=== PATIENT | male | born 1980 | race Caucasian/White ===

== ENCOUNTER 2016-03-04 13:14 | Emergency (ER) | payer OTHER ==
[2016-03-04] MEDS ORDERED: ULTRAM 50 MG PO ONE (13:40)
[2016-03-04] MEDS ORDERED: ULTRAM 50 MG ONE (13:42)
--- NOTE | 2016-03-04 13:55 | ERPHSYRPT ---
- History of Present Illness Time Seen by Provider: 03/04/16 13:15 Source: patient Exam Limitations: clinical condition Patient Subjective Stated Complaint: STATES TOOTHACHE FOR TWO DAYS. UNABLE TO GET INTO DENTIST BECAUSE OF INSURANCE. TOOK HIS [place] TODAY AND HASN'T GOTTEN MUCH RELIEF. Triage Nursing Assessment: AMBULATED TO ROOM PER SELF. SKIN W/D. STATES RIGHT FRONT UPPER TOOTH IS ACHING. Physician History: PATIENT HAS INCREASING TOOTHACHE OVER THE PAST WEEK. DENIES FEVER, FACIAL PAIN OR SWELLING, DIFFICULTY BREATHING OR SWALLOWING. Timing/Duration: gradual onset Severity: moderate ENT Location: dental Prearrival Treatment: prescription meds Associated Symptoms: tooth pain Allergies/Adverse Reactions: haloperidol [From Haldol] Adverse Reaction (Verified 03/04/16 13:23) haloperidol lactate [From Haldol] Adverse Reaction (Verified 03/04/16 13:23) Home Medications: Sertraline HCl 100 mg [Zoloft 100 MG] 100 mg PO BID 10/03/11 [History] Simvastatin 10 mg [Zocor 10MG] 10 mg PO HS 10/03/11 [History] Imipramine HCl 50 mg PO HS 06/01/12 [History] Carvedilol 6.25 mg [Coreg 6.25 MG] 6.25 mg PO BID 11/17/14 [History] Gabapentin 600 mg PO TID 11/17/14 [History] Hydrocodone/APAP 10/325 mg [[place] 10/325 MG Tablet] 1 tab PO Q6-8HPRN PRN 11/17/14 [History] Ipratropium/Albuterol Sulfate [Combivent Inhaler] 14.7 gm IH .PRN 11/17/14 [ History] Clonazepam [Klonopin] 1 mg PO BID 01/13/15 [History] Divalproex Sodium 250 mg PO TID 01/13/15 [History] Famotidine 20 mg [Pepcid 20 MG] 20 mg PO BID 01/13/15 [History] Clonazepam 0.5 mg [Klonopin 0.5 MG] 0.5 mg PO LUNCH 02/09/16 [History] Quetiapine Fumarate [Seroquel] 300 mg PO TID 12/18/16 [History] Hx Tetanus, Diphtheria Vaccination/Date Given: Yes Hx Influenza Vaccination/Date Given: No Hx Pneumococcal Vaccination/Date Given: No - Review of Systems Constitutional: No Fever, No Chills Eyes: No Symptoms Ears, Nose, & Throat: No Symptoms, Other (DENTAL PAIN) Respiratory: No Cough, No Dyspnea Cardiac: No Chest Pain, No Edema, No Syncope Abdominal/Gastrointestinal: No Abdominal Pain, No Nausea, No Vomiting, No Diarrhea Genitourinary Symptoms: No Dysuria Musculoskeletal: No Back Pain, No Neck Pain Skin: No Rash Neurological: No Dizziness, No Focal Weakness, No Sensory Changes Psychological: No Symptoms Endocrine: No Symptoms - Past Medical History Pertinent Past Medical History: Yes Neurological History: Other ENT History: No Pertinent History Cardiac History: High Cholesterol, Hypertension Respiratory History: Other Endocrine Medical History: No Pertinent History Musculoskeletal History: Other GI Medical History: No Pertinent History Psycho-Social History: Anxiety, Depression Other Medical History: GUILLE LUNG COLAPSED 2008, left foot fracture in three places braced no surgery per pt history verbally - Past Surgical History Past Surgical History: Yes Gastrointestinal: Cholecystectomy, Hernia Repair Musculoskeletal: Orthopedic Surgery Other Surgical History: TONSILECTOMY. titanium plate in neck. right hand. TRACH/STOMA. lt foot surgery - Social History Smoking Status: Never smoker Exposure to second hand smoke: Yes Alcohol Use: None Drug Use: none Patient Lives Alone: No Significant Family History: no pertinent family hx - Nursing Vital Signs Nursing Vital Signs: Initial Vital Signs Temperature 98.2 F Temperature Source Oral Pulse Rate 89 Respiratory Rate 16 Blood Pressure 116/90 Pain Intensity 7 - Physical Exam SpO2: 94 Oxygen Delivery: Room Air Ordered Tests: Medication Summary Discontinued Medications Generic Name Dose Route Start Last Admin Trade Name Branden PRN Reason Stop Dose Admin Tramadol HCl 50 mg 03/04/16 13:40 03/04/16 13:47 Ultram 50 Mg PO 03/04/16 13:41 50 mg STAT ONE Administration Tramadol HCl Confirm 03/04/16 13:42 Ultram 50 Mg Administered 03/04/16 13:43 Dose 50 mg .ROUTE .STK-MED ONE - Progress Progress: pain not gone completely Progress Note: 03/04/16 13:51 PATIENT GIVEN ULTRAM 50MG ORALLY Counseled pt/family regarding: diagnosis, need for follow-up - Departure Time of Disposition: 14:00 Departure Disposition: Home Clinical Impression: DENTALGIA Condition: Stable Critical Care Time: No Additional Instructions: CONSULT A DENTIST TODAY TO SCHEDULE APPOINTMENT. ANTIBIOTIC AUGMENTIN 875MG TWICE DAILY FOR 10 DAYS. ULTRAM 50MG EVERY 4 HOURS FOR PAIN. Prescriptions: Tramadol HCl 50 mg [Ultram 50 mg] 50 mg PO Q4HPRN PRN #15 tablet PRN Reason: Pain Amox Tr/Potass Clav. 875 mg [Augmentin 875-125 Tablet] 875 mg PO BID #20 tablet
[2016-03-04 14:01] VITALS: BP 126/84; PULSE 80; O2SAT 96
== END 2016-03-04 14:01 | disposition home or self-care (01) ==
LOC: ED 13:14
DX: K08.89 Other specified disorders of teeth and supporting structures (principal)
CPT/HCPCS: 99282

== ENCOUNTER 2016-12-08 11:11 | Emergency (ER) | payer OTHER ==
[2016-12-08] MEDS ORDERED: Sodium Chloride 0.9% 1000 ML 1,000 ML IV STA ×3 (11:21→14:18)
--- NOTE | 2016-12-08 11:25 | ERPHSYRPT ---
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 Past medical history includes hypercholesterolemia high blood pressure anxiety depression, bilateral lungs collapsed left foot fracture. Past surgical history includes cholecystectomy, hernia repair, tonsillectomy and adenoidectomy. Also type T and place in his neck, left foot surgery Timing/Duration: other (feeling dizzy for 2-3 days) Modifying Factors: Improves With: nothing Associated Symptoms: malaise, weakness, other (dizzy), No nausea, No vomiting, No abdominal pain, No shortness of breath, No heartburn, No diaphoresis, No cough, No chills, No chest pain, No fever, No headaches, No loss of appetite, No rash, No syncope, No seizure Allergies/Adverse Reactions: haloperidol [From Haldol] Adverse Reaction (Verified 12/08/16 11:14) haloperidol lactate [From Haldol] Adverse Reaction (Verified 12/08/16 11:14) Home Medications: Simvastatin 10 mg [Zocor 10MG] 10 mg PO HS 10/03/11 [History] Carvedilol 6.25 mg [Coreg 6.25 MG] 6.25 mg PO BID 11/17/14 [History] Gabapentin 600 mg PO TID 11/17/14 [History] Ipratropium/Albuterol Sulfate [Combivent Inhaler] 2 puff IH QID 11/17/14 [ History] Clonazepam [Klonopin] 1 mg PO BID 01/13/15 [History] Quetiapine Fumarate [Seroquel] 300 mg PO BID 02/09/16 [History] Famotidine [Pepcid] 40 mg PO DAILY 07/16/16 [History] Hx Tetanus, Diphtheria Vaccination/Date Given: Yes Hx Influenza Vaccination/Date Given: No Hx Pneumococcal Vaccination/Date Given: No - Review of Systems Constitutional: Weakness, No Fever, No Chills Eyes: No Symptoms Ears, Nose, & Throat: No Symptoms Respiratory: No Cough, No Dyspnea Cardiac: No Chest Pain, No Edema, No Syncope Abdominal/Gastrointestinal: No Abdominal Pain, No Nausea, No Vomiting, No Diarrhea Genitourinary Symptoms: No Dysuria Musculoskeletal: No Back Pain, No Neck Pain Skin: No Rash Neurological: Dizziness, No Focal Weakness, No Gait Changes, No Headache, No Irritability, No Lethargy, No Paralysis, No Parasthesia, No Seizure, No Sensory Changes, No Speech Changes, No Tics (really), No Tremors, No Vertigo Psychological: No Symptoms Endocrine: No Symptoms All Other Systems: Reviewed and Negative (") - Past Medical History Pertinent Past Medical History: Yes Neurological History: Other ENT History: No Pertinent History Cardiac History: High Cholesterol, Hypertension Respiratory History: Other Endocrine Medical History: No Pertinent History Musculoskeletal History: Other GI Medical History: No Pertinent History Psycho-Social History: Anxiety, Depression Other Medical History: GUILLE LUNG COLAPSED 2008, left foot fracture in three places braced no surgery per pt history verbally - Past Surgical History Past Surgical History: Yes Gastrointestinal: Cholecystectomy, Hernia Repair Musculoskeletal: Orthopedic Surgery Other Surgical History: TONSILECTOMY. titanium plate in neck. right hand. TRACH/STOMA. lt foot surgery - Social History Smoking Status: Never smoker Exposure to second hand smoke: Yes Alcohol Use: None Drug Use: none Patient Lives Alone: No Significant Family History: no pertinent family hx - Nursing Vital Signs Nursing Vital Signs: Initial Vital Signs Pulse Rate 72 12/08/16 11:12 Respiratory Rate 18 12/08/16 11:12 Blood Pressure 84/60 12/08/16 11:12 O2 Sat by Pulse Oximetry 94 L 12/08/16 11:12 Pain Scale Pain Intensity 0 - Physical Exam General Appearance: other (well-developed well-nourished [place], pale in appearance) Eye Exam: PERRL/EOMI, eyes nml inspection Ears, Nose, Throat Exam: normal ENT inspection Neck Exam: normal inspection, non-tender, supple, full range of motion Respiratory Exam: normal breath sounds, lungs clear, No respiratory distress Cardiovascular Exam: regular rate/rhythm, normal heart sounds, normal peripheral pulses Gastrointestinal/Abdomen Exam: soft, normal bowel sounds, No tenderness, No mass Back Exam: normal inspection, normal range of motion, No CVA tenderness, No vertebral tenderness Extremity Exam: normal inspection, normal range of motion, pelvis stable Neurologic Exam: alert, oriented x 3, cooperative, normal mood/affect, nml cerebellar function, nml station & gait, sensation nml, No motor deficits Skin Exam: normal color, warm, dry, No rash Lymphatic Exam: No adenopathy SpO2: 94 Oxygen Delivery: Nasal Cannula - Course Nursing assessment & vital signs reviewed: Yes EKG Interpreted by Me: RATE (EKG: Sinus rhythm, 67 bpm, no acute ST or T wave changes noted, normal axis) Ordered Tests: Active Orders 24 hr Category Date Time Status EKG-ER Only STAT Care 12/08/16 11:21 Active IV Insertion STAT Care 12/08/16 11:21 Active Orthostatic Vital Signs STAT Care 12/08/16 11:21 Active Regular Diet Diet 12/08/16 Dinner Active CHEST 1 VIEW (PORTABLE) Stat Exams 12/08/16 11:21 Completed AMYLASE Stat Lab 12/08/16 11:30 Completed CBC W DIFF Stat Lab 12/08/16 11:30 Completed CMP Stat Lab 12/08/16 11:30 Completed LIPASE Stat Lab 12/08/16 11:30 Completed TROPONIN Q3H Lab 12/08/16 11:30 Completed TROPONIN Q3H Lab 12/08/16 14:30 Ordered TROPONIN Q3H Lab 12/08/16 17:30 Ordered TROPONIN Q3H Lab 12/08/16 20:30 Ordered TROPONIN Q3H Lab 12/08/16 23:30 Ordered UA W/RFX UR CULTURE Stat Lab 12/08/16 12:35 Completed Urine Triage Profile Stat Lab 12/08/16 12:35 Completed Medication Summary Generic Name Dose Route Start Last Admin Trade Name Freq PRN Reason Stop Dose Admin Sodium Chloride 1,000 mls @ 999 mls/hr 12/08/16 14:13 12/08/16 14:22 Sodium Chloride 0.9% 1000 Ml IV 12/08/16 15:13 999 mls/hr .Q1H1M STA Administration Sodium Chloride 1,000 mls @ 999 mls/hr 12/08/16 14:18 12/08/16 14:22 Sodium Chloride 0.9% 1000 Ml IV 12/08/16 15:18 999 mls/hr .Q1H1M STA Administration Discontinued Medications Generic Name Dose Route Start Last Admin Trade Name Freq PRN Reason Stop Dose Admin Sodium Chloride 1,000 mls @ 999 mls/hr 12/08/16 11:21 12/08/16 12:00 Sodium Chloride 0.9% 1000 Ml IV 12/08/16 12:21 999 mls/hr .Q1H1M STA Administration Sodium Chloride Confirm 12/08/16 14:18 Sodium Chloride 0.9% 1000 Ml Administered 12/08/16 14:19 Dose 1,000 mls @ ud .ROUTE .STK-MED ONE Lab/Rad Data: Laboratory Result Diagrams 12/08/16 11:30 12/08/16 11:30 Laboratory Results 12/08/16 12/08/16 12/08/16 Range/Units 12:35 12:35 11:30 WBC (4.0-10.5) K/mm3 RBC (4.1-5.6) M/mm3 Hgb (12.5-18.0) gm/dl Hct (42-50) % MCV (78-100) fl MCH (26-32) pg MCHC (32-36) g/dl RDW (11.5-14.0) % Plt Count (150-450) K/mm3 MPV (6-9.5) fl Gran % (36.0-66.0) % Lymphocytes % (24.0-44.0) % Monocytes % (0.0-12.0) % Eosinophils % (0.00-5.0) % Basophils % (0.0-0.4) % Basophils # (0-0.4) Sodium (136-145) mEq/L Potassium (3.5-5.1) mEq/L Chloride (98-107) mEq/L Carbon Dioxide (21-32) mEq/L Anion Gap (5-15) MEQ/L BUN (9-20) mg/dL Creatinine (0.55-1.30) mg/dl Estimated GFR ML/MIN Glucose (70-110) MG/DL Calcium (8.5-10.1) mg/dL Total Bilirubin (0.2-1.0) mg/dL AST (15-37) U/L ALT (12-78) U/L Alkaline Phosphatase (46-116) U/L Troponin I < 0.017 (0.000-0.056) ng/ml Serum Total Protein (6.4-8.2) gm/dL Albumin (3.4-5.0) g/dL Amylase (25-115) U/L Lipase (73-393) U/L Ur Collection Type VOID Urine Color YELLOW (YELLOW) Urine Appearance CLEAR (CLEAR) Urine pH 7.0 (5-6) Ur Specific [place] 1.010 (1.005-1.025) Urine Protein NEGATIVE (Negative) Urine Ketones NEGATIVE (NEGATIVE) Urine Blood NEGATIVE (0-5) Cameron/ul Urine Nitrite NEGATIVE (NEGATIVE) Urine Bilirubin NEGATIVE (NEGATIVE) Urine Urobilinogen NORMAL (0-1) mg/dL Ur Leukocyte Esterase NEGATIVE (NEGATIVE) Urine Culture Reflexed NO (NO) Urine Glucose NEGATIVE (NEGATIVE) mg/dL Urine Opiates Level NEG. (NEGATIVE) Ur Methadone NEG. (NEGATIVE) Urine Barbiturates NEG. (NEGATIVE) Ur Phencyclidine (PCP) NEG. (NEGATIVE) Urine Amphetamine NEG. (NEGATIVE) U Benzodiazepine Level POS. (NEGATIVE) Urine Cocaine NEG. (NEGATIVE) Urine Marijuana (THC) NEG. (NEGATIVE) Specimen Received 12/08/16 1235 12/08/16 12/08/16 Range/Units 11:30 11:30 WBC 4.3 (4.0-10.5) K/mm3 RBC 4.80 (4.1-5.6) M/mm3 Hgb 14.8 (12.5-18.0) gm/dl Hct 44.2 (42-50) % MCV 92.1 (78-100) fl MCH 30.8 (26-32) pg MCHC 33.5 (32-36) g/dl RDW 14.0 (11.5-14.0) % Plt Count 183 (150-450) K/mm3 MPV 10.4 H (6-9.5) fl Gran % 44.9 (36.0-66.0) % Lymphocytes % 41.9 (24.0-44.0) % Monocytes % 10.6 (0.0-12.0) % Eosinophils % 2.1 (0.00-5.0) % Basophils % 0.5 (0.0-0.4) % Basophils # 0.02 (0-0.4) Sodium 139 (136-145) mEq/L Potassium 3.9 (3.5-5.1) mEq/L Chloride 102 (98-107) mEq/L Carbon Dioxide 25.8 (21-32) mEq/L Anion Gap 15.1 H (5-15) MEQ/L BUN 10 (9-20) mg/dL Creatinine 1.21 (0.55-1.30) mg/dl Estimated GFR > 60 ML/MIN Glucose 98 (70-110) MG/DL Calcium 9.2 (8.5-10.1) mg/dL Total Bilirubin 0.30 (0.2-1.0) mg/dL AST 25 (15-37) U/L ALT 38 (12-78) U/L Alkaline Phosphatase 68 (46-116) U/L Troponin I (0.000-0.056) ng/ml Serum Total Protein 7.9 (6.4-8.2) gm/dL Albumin 4.0 (3.4-5.0) g/dL Amylase 40 (25-115) U/L Lipase 150 (73-393) U/L Ur Collection Type Urine Color (YELLOW) Urine Appearance (CLEAR) Urine pH (5-6) Ur Specific [place] (1.005-1.025) Urine Protein (Negative) Urine Ketones (NEGATIVE) Urine Blood (0-5) Cameron/ul Urine Nitrite (NEGATIVE) Urine Bilirubin (NEGATIVE) Urine Urobilinogen (0-1) mg/dL Ur Leukocyte Esterase (NEGATIVE) Urine Culture Reflexed (NO) Urine Glucose (NEGATIVE) mg/dL Urine Opiates Level (NEGATIVE) Ur Methadone (NEGATIVE) Urine Barbiturates (NEGATIVE) Ur Phencyclidine (PCP) (NEGATIVE) Urine Amphetamine (NEGATIVE) U Benzodiazepine Level (NEGATIVE) Urine Cocaine (NEGATIVE) Urine Marijuana (THC) (NEGATIVE) Specimen Received - Progress Progress: improved Progress Note: 12/08/16 14:13 36-year-old white male complaining of feeling weak and dizzy for the last couple days with the sudden onset of dizziness and feeling like he was going to pass out after helping moving things. Patient was noted to be hypotensive on arrival he was given 2 L of normal saline. Labs essentially normal. EKG no acute changes. I have discussed case with Dr. Graf he requests the patient get 1 more liter of fluids and consider discharge with him to follow-up with Dr. Graf on . - Departure Time of Disposition: 14:14 Departure Disposition: Home Clinical Impression: Dizziness, Orthostatic hypotension Condition: Fair Critical Care Time: No Referrals: RODRIGUEZ GRAF MD [Primary Care Provider] - Additional Instructions: Return home. Plenty of fluids. Follow-up with Dr. Graf call for an appointment. Return for acute distress or for severe symptoms.
[2016-12-08 11:39] LABS: BASOPHIL % 0.5 % (0.0-0.4); Eosinophil % 2.1 % (0.00-5.0); Granulocytes % 44.9 % (36.0-66.0); Lymphocytes % 41.9 % (24.0-44.0); Mean Cell Volume 92.1 fl (78-100); Mean Corpuscular Hemoglobin 30.8 pg (26-32); Mean Platelet Volume 10.4 fl (6-9.5); Monocytes % 10.6 % (0.0-12.0); Platelet Count 183 K/mm3 (150-450); White Blood Count 4.3 K/mm3 (4.0-10.5)
[2016-12-08 12:04] LABS: ALKALINE PHOSPHATASE 68 U/L (46-116); ANION GAP 15.1 MEQ/L (5-15); BLOOD UREA NITROGEN 10 mg/dL (9-20); CHLORIDE 102 mEq/L (98-107); Carbon Dioxide 25.8 mEq/L (21-32); Glucose 98 MG/DL (70-110); LIPASE 150 U/L (73-393); Potassium 3.9 mEq/L (3.5-5.1); SGOT/AST 25 U/L (15-37); SGPT/ALT 38 U/L (12-78); SODIUM 139 mEq/L (136-145); Total Protein 7.9 gm/dL (6.4-8.2)
--- NOTE | 2016-12-08 12:07 | XRAY ---
Indication: Short of breath and dizziness. Comparison: February 09, 2016. Portable chest clear today again with left lung calcified granuloma. Heart is not enlarged for AP portable technique. Vascularity normal. Bony thorax intact again with cervical thoracic fusion surgery. Impression: Nonacute chest with chronic features.
[2016-12-08 12:43] LABS: ADD URINE CULTURE? NO (NO); Bilirubin NEGATIVE (NEGATIVE); Blood NEGATIVE Ery/ul (0-5); COMPLETE URINE MICROSCOPIC? NO; Collection Type VOID; Glucose NEGATIVE (NEGATIVE); Leukocyte Esterase NEGATIVE (NEGATIVE)
[2016-12-08] MEDS ORDERED: Sodium Chloride 0.9% 1000 ML 1,000 ML ONE (14:18)
[2016-12-08 15:11] VITALS: BP 93/54; PULSE 70; O2SAT 98
== END 2016-12-08 15:30 | disposition home or self-care (01) ==
LOC: ED 11:11
DX: R42 Dizziness and giddiness (principal); I95.1 Orthostatic hypotension; E78.00 Pure hypercholesterolemia, unspecified; I10 Essential (primary) hypertension; F41.9 Anxiety disorder, unspecified; F32.9 Major depressive disorder, single episode, unspecified
CPT/HCPCS: 36000; 36415; 71010; 80053; 80307; 81002; 82150; 83690; 84484; 85025; 93005; 93041; 96360; 96361; 99284

== ENCOUNTER 2016-12-10 14:49 | Emergency (ER) | payer OTHER ==
[2016-12-10] MEDS ORDERED: Sodium Chloride 0.9% 1000 ML 1,000 ML IV STA (15:29)
--- NOTE | 2016-12-10 15:35 | ERPHSYRPT ---
- History of Present Illness Time Seen by Provider: 12/10/16 14:53 Source: patient, family, old records Exam Limitations: no limitations Patient Subjective Stated Complaint: pt here for syncopal episode at home today , pt co lightheadedness when stands up. and states he has traumatic brain injury and speech is normally slurred but today it is worse, pt was seen wednesday in er for the dizziness Triage Nursing Assessment: pt arrived per wc, alert, speech slurred, resp easy, skin w/d pink. no edema noted moves all ext welll Physician History: patient with history of orthostatic syncope; had been sitting for long time today watching TV he got up he became lightheaded and passed out; no seizure activity; no headache; only injury is minor abrasion to his right hand; he suffered a significant traumatic head injury several years ago and has had these episodes intermittently since; he was seen in the ED a couple days ago and received some IV hydration; he is oriented and has no other complaints; no new head injury or neck pain; no incontinence or seizure activity; no recent change of medication Witnessed: by family Prior Episodes: single episode today, recent history Timing/Duration: today, hour(s) (1-2), resolved prior to arrival, sudden, improved Precipitating Factors: lightheadedness Context: standing (after sitting for a long period of time) Loss of Consciousness: brief (seconds) Charcter of event(s): collapsed Allergies/Adverse Reactions: haloperidol [From Haldol] Adverse Reaction (Verified 12/10/16 15:05) haloperidol lactate [From Haldol] Adverse Reaction (Verified 12/10/16 15:05) Home Medications: Simvastatin 10 mg [Zocor 10MG] 10 mg PO HS 10/03/11 [History] Carvedilol 6.25 mg [Coreg 6.25 MG] 6.25 mg PO BID 11/17/14 [History] Gabapentin 600 mg PO TID 11/17/14 [History] Ipratropium/Albuterol Sulfate [Combivent Inhaler] 2 puff IH QID 11/17/14 [ History] Clonazepam [Klonopin] 1 mg PO TID 01/13/15 [History] Quetiapine Fumarate [Seroquel] 300 mg PO TID 02/09/16 [History] Famotidine [Pepcid] 40 mg PO DAILY 07/16/16 [History] Sertraline HCl [Zoloft] 200 mg DAILY 12/10/16 [History] Hx Tetanus, Diphtheria Vaccination/Date Given: Yes Hx Influenza Vaccination/Date Given: Yes Hx Pneumococcal Vaccination/Date Given: Yes Immunizations Up to Date: Yes - Past Medical History Pertinent Past Medical History: Yes Neurological History: Other ENT History: No Pertinent History Cardiac History: High Cholesterol, Hypertension Respiratory History: Other Endocrine Medical History: No Pertinent History Musculoskeletal History: Other GI Medical History: No Pertinent History Psycho-Social History: Anxiety, Depression Other Medical History: GUILLE LUNG COLAPSED 2008, left foot fracture in three places braced no surgery per pt history verbally - Past Surgical History Past Surgical History: Yes Gastrointestinal: Cholecystectomy, Hernia Repair Musculoskeletal: Orthopedic Surgery Other Surgical History: TONSILECTOMY. titanium plate in neck. right hand. TRACH/STOMA. lt foot surgery - Social History Smoking Status: Never smoker Exposure to second hand smoke: Yes Alcohol Use: None Drug Use: none Patient Lives Alone: No Significant Family History: no pertinent family hx - Review of Systems Constitutional: Malaise, No Fever, No Chills Eyes: No Symptoms Ears, Nose, & Throat: No Symptoms Respiratory: No Cough, No Dyspnea, No Wheezing Cardiac: Syncope, No Chest Pain, No Palpitations Abdominal/Gastrointestinal: No Abdominal Pain, No Nausea, No Vomiting, No Diarrhea Genitourinary Symptoms: No Dysuria, No Frequency, No Hematuria, No Incontinence , No Flank Pain Musculoskeletal: Fall (syncopal), Injury (minor abrasion right hand), No Back Pain, No Neck Pain, No Joint Pain Skin: No Symptoms Neurological: Dizziness, No Focal Weakness, No Headache, No Seizure, No Speech Changes, No Vertigo Psychological: No Symptoms Endocrine: No Symptoms Hematologic/Lymphatic: No Symptoms Physical Exam - Nursing Vital Signs Nursing Vital Signs: Initial Vital Signs Temperature 97.2 F 12/10/16 14:54 Pulse Rate 67 12/10/16 14:54 Respiratory Rate 22 12/10/16 14:54 Blood Pressure 99/58 12/10/16 14:54 O2 Sat by Pulse Oximetry 97 12/10/16 14:54 Pain Scale Pain Intensity 0 - [place] Coma Scale Best Eye Response ([place]): (4) open spontaneously Best Verbal Response ([place]): (5) oriented Best Motor Response ([place]): (6) obeys commands [place] Total: 15 - Physical Exam General Appearance: mild distress, alert, anxiety Eye Exam: bilateral eye: normal inspection, PERRL, EOMI, other (fundi benign without papilledema; vision okay) Ears, Nose, Throat Exam: normal ENT inspection, pharynx normal, moist mucous membranes Neck Exam: normal inspection, non-tender, supple, full range of motion, No meningismus, No JVD, No subcutaneous emphysema Respiratory: normal breath sounds, lungs clear, airway intact, No chest tenderness, No respiratory distress, No crackles/rales, No rhonchi, No wheezing Cardiovascular: regular rate/rhythm, normal heart sounds, normal peripheral pulses, capillary refill <2 sec, No murmur Gastrointestinal: soft, normal bowel sounds, No tenderness, No guarding, No pulsatile mass, No rebound, No organomegaly Rectal Exam: deferred Back Exam: normal inspection, normal range of motion, No CVA tenderness, No vertebral tenderness, No rash Extremity Exam: normal inspection, normal range of motion, joint swelling, swelling, tenderness, No josie's sign, No pedal edema Peripheral Pulses: carotid (R): 4+, carotid (L): 4+, femoral (R): 4+, femoral (L ): 4+, dorsalis-pedis (R): 3+, dorsalis-pedis (L): 3+ Mental Status: alert, oriented x 3, 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 Exam: normal hearing, normal speech (for patient who has residual form traumatic head injury), PERRL, tongue midline Coordination/Gait: normal gait, normal cerebellar function, negative Romberg's sign Motor/Sensory: no motor deficit, no sensory deficit, no pronator drift, negative Babinski's sign DTR: knee (R): 4+, knee (L): 4+ Skin Exam: normal color, warm, dry, No rash, No petechiae, No cyanosis SpO2 Interpretation: normal SpO2: 97 Oxygen Delivery: Room Air - Course Nursing assessment & vital signs reviewed: Yes EKG Interpreted by Me: RATE (77), Sinus Rhythm, NORMAL AXIS, NORMAL INTERVALS, NORMAL QRS, NORMAL ST-T, Other (unchanged fro ekg done 12-08-16) Rhythm Strip: Rate (76), Normal Sinus Rhythm Ordered Tests: Active Orders 24 hr Category Date Time Status Accucheck STAT Care 12/10/16 15:29 Active Team Foreman STAT Care 12/10/16 15:29 Active EKG-ER Only STAT Care 12/10/16 15:29 Active IV Insertion STAT Care 12/10/16 15:29 Active Orthostatic Vital Signs STAT Care 12/10/16 15:29 Active Pulse Oximetry (ED) STAT Care 12/10/16 15:29 Active Re-Check Vital Signs STAT Care 12/10/16 15:29 Active BMP Stat Lab 12/10/16 15:35 Completed CBC W DIFF Stat Lab 12/10/16 15:35 Completed Medication Summary Discontinued Medications Generic Name Dose Route Start Last Admin Trade Name Freq PRN Reason Stop Dose Admin Sodium Chloride 1,000 mls @ 999 mls/hr 12/10/16 15:29 12/10/16 15:50 Sodium Chloride 0.9% 1000 Ml IV 12/10/16 16:29 999 mls/hr .Q1H1M STA Administration Sodium Chloride Confirm 12/10/16 15:38 Sodium Chloride 0.9% 1000 Ml Administered 12/10/16 15:39 Dose 1,000 mls @ ud .ROUTE .STK-MED ONE Lab/Rad Data: Laboratory Result Diagrams 12/10/16 15:35 12/10/16 15:35 Laboratory Results 12/10/16 12/10/16 Range/Units 15:35 15:35 WBC 5.6 (4.0-10.5) K/mm3 RBC 4.77 (4.1-5.6) M/mm3 Hgb 14.9 (12.5-18.0) gm/dl Hct 44.3 (42-50) % MCV 92.9 (78-100) fl MCH 31.2 (26-32) pg MCHC 33.6 (32-36) g/dl RDW 13.9 (11.5-14.0) % Plt Count 185 (150-450) K/mm3 MPV 10.4 H (6-9.5) fl Gran % 38.8 (36.0-66.0) % Lymphocytes % 45.0 H (24.0-44.0) % Monocytes % 14.1 H (0.0-12.0) % Eosinophils % 1.6 (0.00-5.0) % Basophils % 0.5 (0.0-0.4) % Basophils # 0.03 (0-0.4) Sodium 138 (136-145) mEq/L Potassium 4.6 (3.5-5.1) mEq/L Chloride 102 (98-107) mEq/L Carbon Dioxide 28.3 (21-32) mEq/L Anion Gap 12.5 (5-15) MEQ/L BUN 11 (9-20) mg/dL Creatinine 1.25 (0.55-1.30) mg/dl Estimated GFR > 60 ML/MIN Glucose 91 (70-110) MG/DL Calcium 9.7 (8.5-10.1) mg/dL - Progress Progress: improved (after IV fluids), re-examined (after ) Progress Note: 12/10/16 15:38 OX3; no memory defecit; no new focal defecits; will get Accu-Chek was 109; OSVS pending; lab pending; ekg and monitor wnl will give IV fluids, check labs and recheck 12/10/16 16:21 rechecked and OSVS were wnl and asymptomatic; will continue IV fluids and recheck; labs all ok 12/10/16 16:29 recheck and patient continues to improve; mother at bedside; instructions given ; will follow up with lmd Counseled pt/family regarding: lab results, diagnosis, need for follow-up - Departure Time of Disposition: 16:45 Departure Disposition: Home Clinical Impression: Syncope Condition: Stable Critical Care Time: No Referrals: RODRIGUEZ GRAF MD [Primary Care Provider] - Instructions: Fainting, Prevent Falls Additional Instructions: decrease BP meds to Q daily; follow up LMD recheck Follow-up with family doctor as directed. Call for appointment. Return if any problems. If you smoke please stop. Call or follow up with your family doctor for assistance if you need it to stop. Please wear your seatbelt when driving. Have a nice day. Thank you for allowing us to participate in your care today. :o) Dr Kel Mares
[2016-12-10] MEDS ORDERED: Sodium Chloride 0.9% 1000 ML 1,000 ML ONE ×2 (15:38→19:20)
[2016-12-10 15:47] LABS: BASOPHIL % 0.5 % (0.0-0.4); Eosinophil % 1.6 % (0.00-5.0); Granulocytes % 38.8 % (36.0-66.0); Mean Cell Volume 92.9 fl (78-100); Mean Corpuscular Hemoglobin 31.2 pg (26-32); Mean Platelet Volume 10.4 fl (6-9.5); Monocytes % 14.1 % (0.0-12.0); Platelet Count 185 K/mm3 (150-450); Red Blood Count 4.77 M/mm3 (4.1-5.6); Red Cell Distribution Width 13.9 % (11.5-14.0); White Blood Count 5.6 K/mm3 (4.0-10.5)
[2016-12-10 16:06] LABS: ANION GAP 12.5 MEQ/L (5-15); BLOOD UREA NITROGEN 11 mg/dL (9-20); CHLORIDE 102 mEq/L (98-107); Carbon Dioxide 28.3 mEq/L (21-32); Glucose 91 MG/DL (70-110); Potassium 4.6 mEq/L (3.5-5.1); SODIUM 138 mEq/L (136-145)
[2016-12-10 16:57] VITALS: BP 115/65; PULSE 76; O2SAT 96
== END 2016-12-10 16:58 | disposition home or self-care (01) ==
LOC: ED 14:49
DX: E78.00 Pure hypercholesterolemia, unspecified (principal); I10 Essential (primary) hypertension
CPT/HCPCS: 36000; 36415; 80048; 82962; 85025; 93005; 93041; 96360; 99282

== ENCOUNTER 2017-02-24 13:24 | Emergency (ER) | payer OTHER ==
--- NOTE | 2017-02-24 15:01 | ERPHSYRPT ---
- History of Present Illness Time Seen by Provider: 02/24/17 14:56 Source: patient Exam Limitations: no limitations Patient Subjective Stated Complaint: pt states he woke up this morning with a sorethroat and nasal congestion Triage Nursing Assessment: pt pink, warm, dry. throat red, pt affebrile. Physician History: The patient is a 36-year-old male who was awakened last night with a sore throat , chest congestion, cough. He did receive the influenza vaccination this year. He denies fever. He would like a cough syrup. His past medical history is significant for depression, anxiety, hypertension, and asthma. Patient also had a dramatic brain injury 8 years ago Timing/Duration: today, sudden Cough Quality/Degree: moderate, dry cough Possible Cause: no prior episodes Modifying Factors: Improves With: coughing Associated Symptoms: cough, dizziness, nasal congestion, sore throat Allergies/Adverse Reactions: haloperidol [From Haldol] Adverse Reaction (Verified 02/24/17 14:10) haloperidol lactate [From Haldol] Adverse Reaction (Verified 02/24/17 14:10) Home Medications: Carvedilol 6.25 mg [Coreg 6.25 MG] 6.25 mg PO BID 11/17/14 [History] Gabapentin 600 mg PO TID 11/17/14 [History] Ipratropium/Albuterol Sulfate [Combivent Inhaler] 2 puff IH QID 11/17/14 [ History] Clonazepam [Klonopin] 1 mg PO TID 01/13/15 [History] Quetiapine Fumarate [Seroquel] 300 mg PO TID 02/09/16 [History] Sertraline HCl [Zoloft] 200 mg PO HS 12/10/16 [History] Cyclobenzaprine HCl [Flexeril] 5 mg PO TID 02/24/17 [History] Divalproex Sodium [Depakote] 250 mg PO BID 02/24/17 [History] Divalproex Sodium [Depakote] 500 mg PO HS 02/24/17 [History] Hx Tetanus, Diphtheria Vaccination/Date Given: Yes (up to date) Hx Influenza Vaccination/Date Given: Yes Hx Pneumococcal Vaccination/Date Given: No Immunizations Up to Date: Yes - Review of Systems Constitutional: No Fever, No Chills Eyes: No Symptoms Ears, Nose, & Throat: Throat Pain Respiratory: Cough Cardiac: No Chest Pain, No Edema, No Syncope Abdominal/Gastrointestinal: No Abdominal Pain, No Nausea, No Vomiting, No Diarrhea Genitourinary Symptoms: No Dysuria Musculoskeletal: No Back Pain, No Neck Pain Skin: No Rash Neurological: No Dizziness, No Focal Weakness, No Sensory Changes Psychological: No Symptoms Endocrine: No Symptoms Hematologic/Lymphatic: No Symptoms Immunological/Allergic: No Symptoms All Other Systems: Reviewed and Negative - Past Medical History Pertinent Past Medical History: Yes Neurological History: Other ENT History: No Pertinent History Cardiac History: High Cholesterol, Hypertension Respiratory History: Other Endocrine Medical History: No Pertinent History Musculoskeletal History: Other GI Medical History: No Pertinent History Psycho-Social History: Anxiety, Depression Other Medical History: GUILLE LUNG COLAPSED 2008, left foot fracture in three places braced no surgery per pt history verbally - Past Surgical History Past Surgical History: Yes Gastrointestinal: Cholecystectomy, Hernia Repair Musculoskeletal: Orthopedic Surgery Other Surgical History: TONSILECTOMY. titanium plate in neck. right hand. TRACH/STOMA. lt foot surgery - Social History Smoking Status: Never smoker Exposure to second hand smoke: Yes Alcohol Use: None Drug Use: none Patient Lives Alone: Yes Significant Family History: no pertinent family hx - Nursing Vital Signs Nursing Vital Signs: Initial Vital Signs Temperature 98.1 F 02/24/17 14:04 Pulse Rate 117 H 02/24/17 14:04 Respiratory Rate 24 02/24/17 14:04 Blood Pressure 143/85 02/24/17 14:04 O2 Sat by Pulse Oximetry 95 02/24/17 14:04 Pain Scale Pain Intensity 7 - Physical Exam General Appearance: no apparent distress, alert Eye Exam: PERRL/EOMI, eyes nml inspection Ears, Nose, Throat Exam: pharyngeal erythema Neck Exam: normal inspection Respiratory Exam: rhonchi Cardiovascular Exam: regular rate/rhythm, normal heart sounds Gastrointestinal/Abdomen Exam: soft, No tenderness Rectal Exam: not done Back Exam: normal inspection, No CVA tenderness, No vertebral tenderness Extremity Exam: normal inspection, normal range of motion Neurologic Exam: alert, oriented x 3, cooperative, normal mood/affect, sensation nml, No motor deficits Skin Exam: normal color, warm, dry, No rash Lymphatic Exam: No adenopathy SpO2 Interpretation: normal SpO2: 95 Oxygen Delivery: Room Air - Radiology Exams Chest X-ray Interpretation: Reviewed by me, Teleradiologist Report, Negative (stable nonacute chest with chronic features. Per Dr Clemente.) Ordered Tests: Active Orders 24 hr Category Date Time Status CHEST 2 VIEWS (PA AND LAT) Stat Exams 02/24/17 15:01 Completed CULTURE, THROAT Stat Lab 02/24/17 15:01 Received STREP SCREEN-BETA A Stat Lab 02/24/17 15:01 Completed Lab/Rad Data: Laboratory Results 02/24/17 Range/Units 15:01 Streptococcus Screen NEGATIVE (Negative) - Progress Progress: unchanged Counseled pt/family regarding: lab results, diagnosis, rad results - Departure Time of Disposition: 15:53 Departure Disposition: Home Clinical Impression: Influenza Condition: Stable Critical Care Time: No Referrals: RODRIGUEZ GRAF MD [Primary Care Provider] - Additional Instructions: You clinically have influenza infection. The chest x-ray and the strep screen were both negative. Take Tamiflu 75 mg 2 times a day for 5 days. Take Tessalon Perles 100 mg every 8 hours as needed for cough. Take prednisone 60 mg daily for 5 days. Follow-up if the condition worsens. Prescriptions: Benzonatate [Tessalon Perle] 100 mg PO Q8H PRN PRN #12 capsule PRN Reason: Cough Oseltamivir Phosphate [Tamiflu] 75 mg PO BID #10 capsule Prednisone 20 mg [Deltasone 20 mg] 3 tab PO DAILY #15 tablet
--- NOTE | 2017-02-24 15:33 | XRAY ---
Indication: Cough and sore throat. Comparison: December 08, 2016. PA/lateral chest again demonstrates minimal lingular fibrosis/scarring and left lung calcified granuloma. No focal infiltrate, consolidation, or large effusion. Heart is not enlarged. Bony thorax intact again with cervical thoracic fusion surgery. Impression: Stable nonacute chest with chronic features.
[2017-02-24] MEDS ORDERED: TORAdol 30 mg Injection IM ONE (16:07)
[2017-02-24] MEDS ORDERED: TORAdol 30 mg Injection ONE (16:09)
[2017-02-24 16:39] VITALS: BP 130/84; PULSE 118; O2SAT 94
== END 2017-02-24 16:40 | disposition home or self-care (01) ==
LOC: ED 13:24
DX: J11.1 Influenza due to unidentified influenza virus with other respiratory manifestations (principal); I10 Essential (primary) hypertension; Z79.899 Other long term (current) drug therapy
CPT/HCPCS: 71046; 87070; 87430; 96372; 99284; J1885

== ENCOUNTER 2017-04-21 19:00 | Emergency (ER) | payer OTHER ==
[2017-04-21] MEDS ORDERED: TORAdol 30 mg Injection IM ONE (19:31)
--- NOTE | 2017-04-21 19:35 | ERPHSYRPT ---
- History of Present Illness Time Seen by Provider: 04/21/17 19:25 Source: patient Exam Limitations: no limitations Patient Subjective Stated Complaint: right knee pain 2-3 days, no known injury Triage Nursing Assessment: right knee pain, able to bear weight Physician History: 36 y/o male comes to the ER with complaints of right knee pain for the past 3 days. No known injury. Pt is able to bear weight. Pt describes the pain as aching, constant, 5/10, with radiation to behind the knee and upper thigh and pt has not taken any pain meds. Method of Injury: unknown Occurred: days ago Quality: constant Severity of Pain-Max: moderate Severity of Pain-Current: moderate Lower Extremities Pain: knee: right, thigh: right Modifying Factors: Improves With: nothing Associated Symptoms: none Allergies/Adverse Reactions: haloperidol [From Haldol] Adverse Reaction (Verified 02/24/17 14:10) haloperidol lactate [From Haldol] Adverse Reaction (Verified 02/24/17 14:10) Home Medications: Carvedilol 6.25 mg [Coreg 6.25 MG] 6.25 mg PO BID 11/17/14 [History] Gabapentin 600 mg PO TID 11/17/14 [History] Ipratropium/Albuterol Sulfate [Combivent Inhaler] 2 puff IH QID 11/17/14 [ History] Clonazepam [Klonopin] 1 mg PO TID 01/13/15 [History] Quetiapine Fumarate [Seroquel] 300 mg PO TID 02/09/16 [History] Sertraline HCl [Zoloft] 200 mg PO HS 12/10/16 [History] Cyclobenzaprine HCl [Flexeril] 5 mg PO TID 02/24/17 [History] Divalproex Sodium [Depakote] 250 mg PO BID 02/24/17 [History] Divalproex Sodium [Depakote] 500 mg PO HS 02/24/17 [History] Hx Tetanus, Diphtheria Vaccination/Date Given: Yes Hx Influenza Vaccination/Date Given: Yes Hx Pneumococcal Vaccination/Date Given: No Immunizations Up to Date: Yes - Review of Systems Constitutional: No Fever, No Chills Eyes: No Symptoms Ears, Nose, & Throat: No Symptoms Respiratory: No Cough, No Dyspnea Cardiac: No Chest Pain, No Edema, No Syncope Abdominal/Gastrointestinal: No Abdominal Pain, No Nausea, No Vomiting, No Diarrhea Genitourinary Symptoms: No Dysuria Musculoskeletal: Joint Pain, Myalgias, No Back Pain, No Neck Pain Skin: No Rash Neurological: No Dizziness, No Focal Weakness, No Sensory Changes Psychological: No Symptoms Endocrine: No Symptoms All Other Systems: Reviewed and Negative - Past Medical History Pertinent Past Medical History: Yes Neurological History: Other ENT History: No Pertinent History Cardiac History: High Cholesterol, Hypertension Respiratory History: Other Endocrine Medical History: No Pertinent History Musculoskeletal History: Other GI Medical History: No Pertinent History Psycho-Social History: Anxiety, Depression Other Medical History: GUILLE LUNG COLAPSED 2008, left foot fracture in three places braced no surgery per pt history verbally - Past Surgical History Past Surgical History: Yes Gastrointestinal: Cholecystectomy, Hernia Repair Musculoskeletal: Orthopedic Surgery Other Surgical History: TONSILECTOMY. titanium plate in neck. right hand. TRACH/STOMA. lt foot surgery - Social History Smoking Status: Never smoker Exposure to second hand smoke: Yes Alcohol Use: None Drug Use: none Patient Lives Alone: Yes Significant Family History: no pertinent family hx - Nursing Vital Signs Nursing Vital Signs: Initial Vital Signs Temperature 98.4 F 04/21/17 19:21 Pulse Rate 96 H 04/21/17 19:21 Respiratory Rate 20 04/21/17 19:21 Blood Pressure 141/87 04/21/17 19:21 O2 Sat by Pulse Oximetry 97 04/21/17 19:21 Pain Scale Pain Intensity 2 - Physical Exam General Appearance: alert Eyes, Ears, Nose, Throat Exam: moist mucous membranes Neck Exam: non-tender, supple Cardiovascular/Respiratory Exam: chest non-tender, normal breath sounds, regular rate/rhythm, no respiratory distress Gastrointestinal/Abdominal Exam: non-tender, guarding Back Exam: normal inspection, No vertebral tenderness Hips Exam: bilateral: non-tender, normal inspection, normal range of motion, no evidence of injury Legs Exam: bilateral leg: non-tender, normal inspection, normal range of motion , no evidence of injury Knees Exam: bilateral knee: non-tender, normal inspection, normal range of motion, no evidence of injury Ankle Exam: bilateral ankle: non-tender, normal inspection, normal range of motion, no evidence of injury Neuro/Tendon Exam: normal sensation, normal motor functions Mental Status Exam: alert, oriented x 3, cooperative Skin Exam: normal color, warm, dry SpO2: 97 Oxygen Delivery: Room Air - Course Nursing assessment & vital signs reviewed: Yes Ordered Tests: Active Orders 24 hr Category Date Time Status KNEE (3 VIEWS) Stat Exams 04/21/17 19:53 Taken D-DIMER QUANTITATION Stat Lab 04/21/17 20:14 Completed Medication Summary Discontinued Medications Generic Name Dose Route Start Last Admin Trade Name Freq PRN Reason Stop Dose Admin Ketorolac Tromethamine 60 mg 04/21/17 19:31 04/21/17 19:54 Toradol 30 Mg Injection IM 04/21/17 19:32 60 mg STAT ONE Administration Ketorolac Tromethamine Confirm 04/21/17 19:43 Toradol 30 Mg Injection Administered 04/21/17 19:44 Dose 60 mg .ROUTE .STChiral [facility] ONE Lab/Rad Data: Laboratory Results 04/21/17 Range/Units 20:14 D-Dimer < 215 (0-500) ng/mL - Progress Progress: improved Progress Note: 04/21/17 20:51 The d dimer is negative. The knee x ray is within normal limits. Pt will be d/c home on toradol for musculoskeletal pain. - Departure Time of Disposition: 20:51 Departure Disposition: Home Clinical Impression: Knee pain Qualifiers: Chronicity: acute Laterality: right Qualified Code(s): M25.561 - Pain in right knee Condition: Stable Critical Care Time: No Referrals: RODRIGUEZ GRAF MD [Primary Care Provider] - Instructions: Knee Sprain (DC) Additional Instructions: Follow up with your primary care doctor if you should continue to have knee pain. Prescriptions: Ketorolac Tromethamine [Toradol] 10 mg PO QID PRN #20 tablet PRN Reason: Pain
[2017-04-21] MEDS ORDERED: TORAdol 30 mg Injection ONE (19:43)
[2017-04-21 20:43] VITALS: BP 119/92
[2017-04-21 20:53] VITALS: PULSE 92; O2SAT 97
--- NOTE | 2017-04-22 09:50 | XRAY ---
Exam: 3 view right knee series from 04/21/2017. Comparison: None. Indication: Right knee pain 3 days, difficulty with weightbearing, no known injury. Findings: AP, internal oblique, and crosstable lateral views of the right knee were obtained. I see no acute fracture, dislocation, or suprapatellar joint effusion. Both the femoral tibial joint and patella femoral joint spaces appear unremarkable. No abnormal periarticular soft tissue calcifications are seen. No other significant focal bone lesion is seen. Impression: 1. No plain film bone or joint abnormality of the right knee is seen.
== END 2017-04-21 21:11 | disposition home or self-care (01) ==
LOC: ED 19:00
DX: M25.561 Pain in right knee (principal); Z79.899 Other long term (current) drug therapy
CPT/HCPCS: 36415; 73562; 85379; 96372; 99283; J1885

== ENCOUNTER 2019-08-20 13:52 | Emergency (ER) | payer OTHER ==
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
[2019-08-20 14:05] VITALS: BP 127/85; PULSE 90; O2SAT 96
== END 2019-08-20 14:39 | disposition home or self-care (01) ==
LOC: ED 13:52
DX: K62.89 Other specified diseases of anus and rectum (principal); K64.9 Unspecified hemorrhoids; I10 Essential (primary) hypertension; E78.00 Pure hypercholesterolemia, unspecified; F41.9 Anxiety disorder, unspecified
CPT/HCPCS: 99283

== ENCOUNTER 2021-10-29 11:01 | Emergency (ER) | payer OTHER ==
[2012-02-12 20:58] VITALS: BP 130/70
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
== END 2021-10-29 11:30 | disposition left against medical advice (07) ==
LOC: ED 11:01
DX: Z53.21 Procedure and treatment not carried out due to patient leaving prior to being seen by health care provider (principal)

== ENCOUNTER 2022-12-22 16:05 | Observation (INO) | payer OTHER ==
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
--- NOTE | 2022-12-22 16:51 | XRAY ---
Indication: Dizziness 2 weeks. Stroke. Multiple contiguous axial images obtained through the head without contrast. Comparison: February 12, 2012 Age-appropriate global atrophy. Interval maturation old right mid to posterior parietal lobe infarct near the vertex. No acute intracranial hemorrhage, hydrocephalus, or mass effect. Fourth ventricle is midline. Bony calvarium intact. Visualized paranasal sinuses and mastoid air cells are clear. 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 No new/acute intracranial abnormalities.
[2022-12-22 17:09] LABS: Absolute Neutrophil Ct (ANC) 2.53 x10^3/uL (1.4-6.9); BASOPHIL % 0.8 % (0.0-0.4); Basophil (Absolute #) 0.04 x10^3/uL (0-0.4); Eosinophil % 4.2 % (0.00-5.0); Hematocrit 44.4 % (42-50); Hemoglobin 14.9 g/dL (12.5-18.0); IMMATURE GRAN # 0.01 x10^3u/L (0.00-0.03); IMMATURE GRAN % 0.2 % (0.00-0.4); Lymphocyte (Absolute #) 1.56 x10^3/uL (1.0-4.6); Lymphocytes % 32.6 % (24.0-44.0); Mean Cell Volume 91.9 fL (78-100); Mean Corpuscular Hemoglobin 30.8 pg (26-32); Mean Corpuscular Hgb Concent. 33.6 g/dL (32-36); Mean Platelet Volume 9.3 fL (7.5-11.0); Monocyte (Absolute #) 0.45 x10^3/uL (0.0-1.3); Monocytes % 9.4 % (0.0-12.0); Neutrophil % 52.8 % (36.0-66.0); Platelet Count 211 x10^3/uL (150-450); Red Blood Count 4.83 x10^6/uL (4.1-5.6); Red Cell Distribution Width 12.5 % (11.5-14.0); White Blood Count 4.8 x10^3/uL (4.0-10.5)
[2022-12-22 17:29] LABS: ALBUMIN 4.4 g/dL (3.5-5.0); ANION GAP 7.4 MEQ/L (5-15); BILIRUBIN,TOTAL 0.5 mg/dL (0.2-1.3); Calcium 9.6 mg/dL (8.4-10.2); EST GLOMERULAR FILTRATION RATE 95.2 ML/MIN; Potassium 4.1 mmol/L (3.5-5.1); Total Protein 7.3 g/dL (6.3-8.2)
[2022-12-22 19:31] LABS: Appearance Clear (Clear); Bacteria None Seen /HPF (None Seen); Bilirubin Negative (Negative); Blood Negative (Negative); Epithelial Cells None Seen /HPF (None Seen); Glucose, Urine Negative (Negative); Hyaline Casts NONE SEEN /LPF (0-2); Ketones Negative (Negative); Leukocyte Esterase Negative (Negative); Nitrite Negative (Negative); Protein,Urine Dip Negative (Negative); RBC 0-2 /HPF (0-5); Specific Gravity 1.015 (1.005-1.030); Urobilinogen 0.2 mg/dL (0.2); WBC 0-2 /HPF (0-5)
[2022-12-22 19:32] LABS: ADD URINE CULTURE? NO (NO)
[2022-12-22] MEDS ORDERED: BABY ASPIRIN 81 MG CHEW PO ONE (19:51)
[2022-12-22] MEDS ORDERED: Sodium Chloride 0.9% 1000 ML 1,000 ML IV SCH (20:00)
[2022-12-22] MEDS ORDERED: BABY ASPIRIN 81 MG CHEW ONE (20:16)
[2022-12-22] MEDS ORDERED: TYLENOL 325 MG PO PRN (22:51)
--- NOTE | 2022-12-22 23:00 | PCM.HP ---
History of Present Illness - Chief Complaint Chief Complaint: recurrent falls, dizziness Date: 12/22/22 History of Present Illness: 42 y/o M with h/o TBI, presents with dizziness and falls. Notes that has had some difficulty with dizziness for months, but has been most pronounced the last two weeks. Normally walks independently, but since going on a cruise two weeks ago, has had severe dizziness causing him to fall, unable to walk even while trying to use mother's rolling walker. Denies nausea, diplopia, or vision changes. No ear pain or swelling or hearing changes, no sore throat or dyspnea. No changes to his medication dosing. No focal weakness or numbness. - Review of Systems Constitutional: No Fever, No Chills, No Lethargy, No Malaise Eyes: No Vision Changes Ears, Nose, & Throat: No Ear Pain, No Hearing Changes, No Throat Pain Respiratory: No Cough, No Short Of Breath Cardiac: No Chest Pain Abdominal/Gastrointestinal: No Abdominal Pain, No Nausea Genitourinary Symptoms: No Dysuria, No Frequency Neurological: Dizziness, Gait Changes, Headache (but chronic and unchanged), No Focal Weakness, No Lethargy, No Paralysis, No Speech Changes Psychological: No No Symptoms All Other Systems: Reviewed and Negative Medications & Allergies Home Medications: Home Medication List Carvedilol [Coreg ] 1 tab PO BID 12/22/22 [History Confirmed 12/22/22] [place] Carbonate 1 tab PO BID 12/22/22 [History Confirmed 12/22/22] Quetiapine Fumarate 1 tab PO TID 12/22/22 [History Confirmed 12/22/22] Trazodone HCl 1 tab PO HS 12/22/22 [History Confirmed 12/22/22] Vortioxetine Hydrobromide [Trintellix] 1 tab PO DAILY 12/22/22 [History Confirmed 12/22/22] clonazePAM [Clonazepam] 1 tab PO TID 12/22/22 [History Confirmed 12/22/22] haloperidoL [Haloperidol] 1 tab PO BID 12/22/22 [History Confirmed 12/22/22] Allergies/Adverse Reactions: Allergies Allergy/AdvReac Type Severity Reaction Status Date / Time No Known Drug Allergies Allergy Verified 12/22/22 16:17 - Past Medical History Past Medical History: Yes Neurological History: Other ENT History: No Pertinent History Cardiac History: High Cholesterol, Hypertension Respiratory History: Other Endocrine Medical History: No Pertinent History Musculoskelatal History: Other GI Medical History: No Pertinent History History: No Pertinent History Pyscho-Social History: Anxiety, Depression Male Reproductive Disorders: No Pertinent History Comment: GUILLE LUNG COLAPSED 2008, left foot fracture in three places braced no surgery per pt history verbally, plates in neck s/p fx neck/ surgery at [facility] in 2008 - Past Surgical History Past Surgical History: Yes GI Surgical History: Cholecystectomy, Hernia Repair Musculskeletal Surgical Hx: Orthopedic Surgery Other Surgical History: TONSILECTOMY. titanium plate in neck. right hand. TRACH/STOMA. lt foot surgery - Social History Smoking Status: Never smoker Exposure to second hand smoke: Yes Alcohol: None Drug Use: none Significant Family History: no pertinent family hx - Physical Exam Vital Signs: Vital Signs - 24 hr Temp Pulse Resp BP BP Pulse Ox 12/22/22 21:00 97 F 67 16 127/68 98 12/22/22 20:30 124/76 12/22/22 20:00 67 21 122/96 94 L 12/22/22 19:56 92 L 12/22/22 19:30 96 H 19 130/82 77 L 12/22/22 19:28 64 16 125/82 100 12/22/22 19:26 67 16 126/84 100 12/22/22 19:20 98 12/22/22 19:10 99 12/22/22 19:03 70 L 12/22/22 18:30 74 18 125/84 100 12/22/22 18:26 114/80 99 12/22/22 18:25 100 12/22/22 18:23 100 12/22/22 17:00 119/81 12/22/22 16:30 123/81 99 12/22/22 16:17 98 12/22/22 16:16 73 11 L 124/88 92 L General Appearance: no apparent distress Neurologic Exam: alert, oriented x 3, No motor deficits, No sensory deficit, No facial droop, No slurred speech, No abnormal cerebellar tests Respiratory Exam: normal breath sounds, lungs clear, No respiratory distress Cardiovascular Exam: regular rate/rhythm, normal heart sounds, No edema Gastrointestinal/Abdomen Exam: No tenderness, No distention Results - Labs Lab/Micro Results: Lab Results-Last 24 Hours 12/22/22 12/22/22 12/22/22 Range/Units 17:08 17:08 17:08 WBC 4.8 (4.0-10.5) x10^3/uL RBC 4.83 (4.1-5.6) x10^6/uL Hgb 14.9 (12.5-18.0) g/dL Hct 44.4 (42-50) % MCV 91.9 (78-100) fL MCH 30.8 (26-32) pg MCHC 33.6 (32-36) g/dL RDW 12.5 (11.5-14.0) % Plt Count 211 (150-450) x10^3/uL MPV 9.3 (7.5-11.0) fL Gran % 52.8 (36.0-66.0) % Immature Gran % (Auto) 0.2 (0.00-0.4) % Nucleat RBC Rel Count 0.0 (0.00-0.1) % Eos # (Auto) 0.20 (0-0.5) x10^3/uL Immature Gran # (Auto) 0.01 (0.00-0.03) x10^3u/L Absolute Lymphs (auto) 1.56 (1.0-4.6) x10^3/uL Absolute Monos (auto) 0.45 (0.0-1.3) x10^3/uL Absolute Nucleated RBC 0.00 (0.00-0.01) x10^3u/L Lymphocytes % 32.6 (24.0-44.0) % Monocytes % 9.4 (0.0-12.0) % Eosinophils % 4.2 (0.00-5.0) % Basophils % 0.8 (0.0-0.4) % Absolute Granulocytes 2.53 (1.4-6.9) x10^3/uL Basophils # 0.04 (0-0.4) x10^3/uL Sodium 137 (137-145) mmol/L Potassium 4.1 (3.5-5.1) mmol/L Chloride 102 (98-107) mmol/L Carbon Dioxide 32 H (22-30) mmol/L Anion Gap 7.4 (5-15) MEQ/L BUN 9 (9-20) mg/dL Creatinine 1.00 (0.66-1.25) mg/dL Estimated GFR 95.2 ML/MIN Glucose 94 (74-106) mg/dL Calcium 9.6 (8.4-10.2) mg/dL Total Bilirubin 0.50 (0.2-1.3) mg/dL AST 20 (17-59) U/L ALT 15 (0-50) U/L Alkaline Phosphatase 65 (38-126) U/L Troponin I < 0.012 (0.000-0.034) ng/mL Serum Total Protein 7.3 (6.3-8.2) g/dL Albumin 4.4 (3.5-5.0) g/dL Urine Color (Yellow) Urine Appearance (Clear) Urine pH (4.6-8.0) Ur Specific [place] (1.005-1.030) Urine Protein (Negative) Urine Glucose (UA) (Negative) mg/dL Urine Ketones (Negative) Urine Blood (Negative) Urine Nitrite (Negative) Urine Bilirubin (Negative) Urine Urobilinogen (0.2) mg/dL Ur Leukocyte Esterase (Negative) U Hyaline Cast (Auto) (0-2) /LPF Urine Microscopic RBC (0-5) /HPF Urine Microscopic WBC (0-5) /HPF Ur Epithelial Cells (None Seen) /HPF Urine Bacteria (None Seen) /HPF Urine Culture Reflexed (NO) [place] (0.60-1.20) mmol/L 12/22/22 12/22/22 12/22/22 Range/Units 19:23 20:18 Unknown WBC (4.0-10.5) x10^3/uL RBC (4.1-5.6) x10^6/uL Hgb (12.5-18.0) g/dL Hct (42-50) % MCV (78-100) fL MCH (26-32) pg MCHC (32-36) g/dL RDW (11.5-14.0) % Plt Count (150-450) x10^3/uL MPV (7.5-11.0) fL Gran % (36.0-66.0) % Immature Gran % (Auto) (0.00-0.4) % Nucleat RBC Rel Count (0.00-0.1) % Eos # (Auto) (0-0.5) x10^3/uL Immature Gran # (Auto) (0.00-0.03) x10^3u/L Absolute Lymphs (auto) (1.0-4.6) x10^3/uL Absolute Monos (auto) (0.0-1.3) x10^3/uL Absolute Nucleated RBC (0.00-0.01) x10^3u/L Lymphocytes % (24.0-44.0) % Monocytes % (0.0-12.0) % Eosinophils % (0.00-5.0) % Basophils % (0.0-0.4) % Absolute Granulocytes (1.4-6.9) x10^3/uL Basophils # (0-0.4) x10^3/uL Sodium (137-145) mmol/L Potassium (3.5-5.1) mmol/L Chloride (98-107) mmol/L Carbon Dioxide (22-30) mmol/L Anion Gap (5-15) MEQ/L BUN (9-20) mg/dL Creatinine (0.66-1.25) mg/dL Estimated GFR ML/MIN Glucose (74-106) mg/dL Calcium (8.4-10.2) mg/dL Total Bilirubin (0.2-1.3) mg/dL AST (17-59) U/L ALT (0-50) U/L Alkaline Phosphatase (38-126) U/L Troponin I < 0.012 (0.000-0.034) ng/mL Serum Total Protein (6.3-8.2) g/dL Albumin (3.5-5.0) g/dL Urine Color Yellow (Yellow) Urine Appearance Clear (Clear) Urine pH 7.0 (4.6-8.0) Ur Specific [place] 1.015 (1.005-1.030) Urine Protein Negative (Negative) Urine Glucose (UA) Negative (Negative) mg/dL Urine Ketones Negative (Negative) Urine Blood Negative (Negative) Urine Nitrite Negative (Negative) Urine Bilirubin Negative (Negative) Urine Urobilinogen 0.2 (0.2) mg/dL Ur Leukocyte Esterase Negative (Negative) U Hyaline Cast (Auto) NONE SEEN (0-2) /LPF Urine Microscopic RBC 0-2 (0-5) /HPF Urine Microscopic WBC 0-2 (0-5) /HPF Ur Epithelial Cells None Seen (None Seen) /HPF Urine Bacteria None Seen (None Seen) /HPF Urine Culture Reflexed NO (NO) [place] 0.7 (0.60-1.20) mmol/L - Radiology Impressions Radiology Exams & Impressions: Radiology Procedures Category Date Time Status CT ANGIOGRAPHY NECK [CT] Routine Exams 12/22/22 22:52 Ordered CTA HEAD W AND/OR WO CONTRAST [CT] Routine Exams 12/22/22 22:52 Ordered ECHO W/2D AND DOPPLER [US] Routine Exams 12/22/22 22:52 Ordered HEAD WITHOUT CONTRAST [CT] Stat Exams 12/22/22 16:18 Completed MRI BRAIN W/O CONTRAST [MRI] Routine Exams 12/22/22 22:52 Ordered - Other Procedures and Tests Respiratory Therapy 12/22/22 22:54 EEG 41-60 Minutes (Normal) ONCE Assessment/Plan (1) Dizziness Current Visit: Yes Status: Acute Assessment & Plan: 42 y/o M with h/o TBI here with dizziness. ## Dizziness - severe, causing unstable ataxic gait. Denies vertigo, diplopia, and no cerebellar signs on exam. Possibly lithium toxicity, but doses have been unchanged for some time. Neurology consulted in ED, want EEG, MRI brain, stroke evaluation. Patient has h/o plates and screws from TBI surgery in 2008, staff working to see if can get MRI done. - MRI brain if possible - can get CTA head/neck for perfusion - echo - EEG - check lithium level - PT/OT evaluation for gait ## TBI - with multiple seizure and psychoactive medications at home. - continue home Klonopin 1 TID, Haldol 5 bid, Seroquel 300 TID, trazodone 100 HS, Trintellix 10 daily Code status: Full code Prophylaxis: Lovenox 40 Diet: Regular Code(s): R42 - DIZZINESS AND GIDDINESS Telemedicine Encounter - Telemedicine Encounter Telemedicine Encounter: The entirety of this encounter was performed via Telemedicine"
[2022-12-22] MEDS ORDERED: DESYREL 50 MG ONE (23:05)
[2022-12-22] MEDS: DESYREL 50 MG PO SCH (23:09)
[2022-12-23 05:16] LABS: Hematocrit 41.9 % (42-50); Hemoglobin 14.2 g/dL (12.5-18.0); Mean Cell Volume 90.9 fL (78-100); Mean Corpuscular Hemoglobin 30.8 pg (26-32); Mean Corpuscular Hgb Concent. 33.9 g/dL (32-36); Mean Platelet Volume 9.5 fL (7.5-11.0); Platelet Count 233 x10^3/uL (150-450); Red Blood Count 4.61 x10^6/uL (4.1-5.6); Red Cell Distribution Width 12.9 % (11.5-14.0); White Blood Count 6.7 x10^3/uL (4.0-10.5)
--- NOTE | 2022-12-23 05:24 | PCM.NOTE ---
Date and Time: 12/23/22 05 Subjective Assessment: HPI: 42 y/o M with h/o TBI, presents with dizziness and falls. Notes that has had some difficulty with dizziness for months, but has been most pronounced the last two weeks. Normally walks independently, but since going on a cruise two weeks ago, has had severe dizziness causing him to fall, unable to walk even while trying to use mother's rolling walker. Denies nausea, diplopia, or vision changes. No ear pain or swelling or hearing changes, no sore throat or dyspnea. No changes to his medication dosing. No focal weakness or numbness. 12/23/22: Met with patient bedside. Endorses continued light-headedness which has been present for months but has gotten worse the last few weeks, headaches occasion ally, and left-sided weakness/numbness which is chronic since his stroke in 2008. Patient to have MRI, CTA head/neck, and echo this morning. EEG was normal. Denies fever,cough, sob, cp, abdominal pain, N/V/D, diplopia, or vision changes. Neuro recs pending on these results. Patient states he does not see neurology as OP, we will set him up with one prior to d/c. - Review of Systems Constitutional: Weakness Eyes: No Symptoms Ears, Nose, & Throat: No Symptoms Respiratory: No Symptoms Cardiac: No Symptoms Abdominal/Gastrointestinal: No Symptoms Genitourinary Symptoms: No Symptoms Musculoskeletal: Other (Left sided weakness/numbness ) Skin: No Symptoms Neurological: Dizziness, Focal Weakness, Headache, Parasthesia Psychological: No Symptoms Endocrine: No Symptoms Hematologic/Lymphatic: No Symptoms Immunological/Allergic: No Symptoms Objective Exam General Appearance: no apparent distress Neurologic Exam: alert, oriented x 3, cooperative Skin Exam: normal color Eye Exam: PERRL Ears, Nose, Throat Exam: normal ENT inspection Neck Exam: normal inspection Respiratory Exam: normal breath sounds, lungs clear Cardiovascular Exam: regular rate/rhythm, normal heart sounds Gastrointestinal/Abdomen Exam: soft, normal bowel sounds Extremity Exam: parasthesia (LUE/LLE 3/5 strength RUE/RLE 5/5) Back Exam: normal inspection Male Genitalia Exam: deferred Rectal Exam: deferred OBJECTIVE DATA Vital Signs: Vital Signs - 24 hr Temp Pulse Resp BP BP Pulse Ox 12/23/22 04:00 98.3 F 76 16 108/67 95 12/22/22 21:00 97.8 F 67 18 127/68 99 12/22/22 20:30 124/76 12/22/22 20:00 67 21 122/96 94 L 12/22/22 19:56 92 L 12/22/22 19:30 96 H 19 130/82 77 L 12/22/22 19:28 64 16 125/82 100 12/22/22 19:26 67 16 126/84 100 12/22/22 19:20 98 12/22/22 19:10 99 12/22/22 19:03 70 L 12/22/22 18:30 74 18 125/84 100 12/22/22 18:26 114/80 99 12/22/22 18:25 100 12/22/22 18:23 100 12/22/22 17:00 119/81 12/22/22 16:30 123/81 99 12/22/22 16:17 98 12/22/22 16:16 73 11 L 124/88 92 L Pain Assessment - Last Documented Pain Intensity 0 Intake and Output: Intake & Output 12/20/22 12/21/22 12/22/22 12/23/22 11:59 11:59 11:59 11:59 Intake Total 480 Output Total 150 Balance 330 Weight 81 kg Lab Results: Lab Results-Last 24 Hours 12/22/22 12/22/22 12/22/22 Range/Units 17:08 17:08 17:08 WBC 4.8 (4.0-10.5) x10^3/uL RBC 4.83 (4.1-5.6) x10^6/uL Hgb 14.9 (12.5-18.0) g/dL Hct 44.4 (42-50) % MCV 91.9 (78-100) fL MCH 30.8 (26-32) pg MCHC 33.6 (32-36) g/dL RDW 12.5 (11.5-14.0) % Plt Count 211 (150-450) x10^3/uL MPV 9.3 (7.5-11.0) fL Gran % 52.8 (36.0-66.0) % Immature Gran % (Auto) 0.2 (0.00-0.4) % Nucleat RBC Rel Count 0.0 (0.00-0.1) % Eos # (Auto) 0.20 (0-0.5) x10^3/uL Immature Gran # (Auto) 0.01 (0.00-0.03) x10^3u/L Absolute Lymphs (auto) 1.56 (1.0-4.6) x10^3/uL Absolute Monos (auto) 0.45 (0.0-1.3) x10^3/uL Absolute Nucleated RBC 0.00 (0.00-0.01) x10^3u/L Lymphocytes % 32.6 (24.0-44.0) % Monocytes % 9.4 (0.0-12.0) % Eosinophils % 4.2 (0.00-5.0) % Basophils % 0.8 (0.0-0.4) % Absolute Granulocytes 2.53 (1.4-6.9) x10^3/uL Basophils # 0.04 (0-0.4) x10^3/uL Sodium 137 (137-145) mmol/L Potassium 4.1 (3.5-5.1) mmol/L Chloride 102 (98-107) mmol/L Carbon Dioxide 32 H (22-30) mmol/L Anion Gap 7.4 (5-15) MEQ/L BUN 9 (9-20) mg/dL Creatinine 1.00 (0.66-1.25) mg/dL Estimated GFR 95.2 ML/MIN Glucose 94 (74-106) mg/dL Calcium 9.6 (8.4-10.2) mg/dL Total Bilirubin 0.50 (0.2-1.3) mg/dL AST 20 (17-59) U/L ALT 15 (0-50) U/L Alkaline Phosphatase 65 (38-126) U/L Troponin I < 0.012 (0.000-0.034) ng/mL Serum Total Protein 7.3 (6.3-8.2) g/dL Albumin 4.4 (3.5-5.0) g/dL Urine Color (Yellow) Urine Appearance (Clear) Urine pH (4.6-8.0) Ur Specific [place] (1.005-1.030) Urine Protein (Negative) Urine Glucose (UA) (Negative) mg/dL Urine Ketones (Negative) Urine Blood (Negative) Urine Nitrite (Negative) Urine Bilirubin (Negative) Urine Urobilinogen (0.2) mg/dL Ur Leukocyte Esterase (Negative) U Hyaline Cast (Auto) (0-2) /LPF Urine Microscopic RBC (0-5) /HPF Urine Microscopic WBC (0-5) /HPF Ur Epithelial Cells (None Seen) /HPF Urine Bacteria (None Seen) /HPF Urine Culture Reflexed (NO) [place] (0.60-1.20) mmol/L 12/22/22 12/22/22 12/22/22 Range/Units 19:23 20:18 Unknown WBC (4.0-10.5) x10^3/uL RBC (4.1-5.6) x10^6/uL Hgb (12.5-18.0) g/dL Hct (42-50) % MCV (78-100) fL MCH (26-32) pg MCHC (32-36) g/dL RDW (11.5-14.0) % Plt Count (150-450) x10^3/uL MPV (7.5-11.0) fL Gran % (36.0-66.0) % Immature Gran % (Auto) (0.00-0.4) % Nucleat RBC Rel Count (0.00-0.1) % Eos # (Auto) (0-0.5) x10^3/uL Immature Gran # (Auto) (0.00-0.03) x10^3u/L Absolute Lymphs (auto) (1.0-4.6) x10^3/uL Absolute Monos (auto) (0.0-1.3) x10^3/uL Absolute Nucleated RBC (0.00-0.01) x10^3u/L Lymphocytes % (24.0-44.0) % Monocytes % (0.0-12.0) % Eosinophils % (0.00-5.0) % Basophils % (0.0-0.4) % Absolute Granulocytes (1.4-6.9) x10^3/uL Basophils # (0-0.4) x10^3/uL Sodium (137-145) mmol/L Potassium (3.5-5.1) mmol/L Chloride (98-107) mmol/L Carbon Dioxide (22-30) mmol/L Anion Gap (5-15) MEQ/L BUN (9-20) mg/dL Creatinine (0.66-1.25) mg/dL Estimated GFR ML/MIN Glucose (74-106) mg/dL Calcium (8.4-10.2) mg/dL Total Bilirubin (0.2-1.3) mg/dL AST (17-59) U/L ALT (0-50) U/L Alkaline Phosphatase (38-126) U/L Troponin I < 0.012 (0.000-0.034) ng/mL Serum Total Protein (6.3-8.2) g/dL Albumin (3.5-5.0) g/dL Urine Color Yellow (Yellow) Urine Appearance Clear (Clear) Urine pH 7.0 (4.6-8.0) Ur Specific [place] 1.015 (1.005-1.030) Urine Protein Negative (Negative) Urine Glucose (UA) Negative (Negative) mg/dL Urine Ketones Negative (Negative) Urine Blood Negative (Negative) Urine Nitrite Negative (Negative) Urine Bilirubin Negative (Negative) Urine Urobilinogen 0.2 (0.2) mg/dL Ur Leukocyte Esterase Negative (Negative) U Hyaline Cast (Auto) NONE SEEN (0-2) /LPF Urine Microscopic RBC 0-2 (0-5) /HPF Urine Microscopic WBC 0-2 (0-5) /HPF Ur Epithelial Cells None Seen (None Seen) /HPF Urine Bacteria None Seen (None Seen) /HPF Urine Culture Reflexed NO (NO) [place] 0.7 (0.60-1.20) mmol/L 12/23/22 Range/Units 05:07 WBC 6.7 (4.0-10.5) x10^3/uL RBC 4.61 (4.1-5.6) x10^6/uL Hgb 14.2 (12.5-18.0) g/dL Hct 41.9 L (42-50) % MCV 90.9 (78-100) fL MCH 30.8 (26-32) pg MCHC 33.9 (32-36) g/dL RDW 12.9 (11.5-14.0) % Plt Count 233 (150-450) x10^3/uL MPV 9.5 (7.5-11.0) fL Gran % (36.0-66.0) % Immature Gran % (Auto) (0.00-0.4) % Nucleat RBC Rel Count (0.00-0.1) % Eos # (Auto) (0-0.5) x10^3/uL Immature Gran # (Auto) (0.00-0.03) x10^3u/L Absolute Lymphs (auto) (1.0-4.6) x10^3/uL Absolute Monos (auto) (0.0-1.3) x10^3/uL Absolute Nucleated RBC (0.00-0.01) x10^3u/L Lymphocytes % (24.0-44.0) % Monocytes % (0.0-12.0) % Eosinophils % (0.00-5.0) % Basophils % (0.0-0.4) % Absolute Granulocytes (1.4-6.9) x10^3/uL Basophils # (0-0.4) x10^3/uL Sodium (137-145) mmol/L Potassium (3.5-5.1) mmol/L Chloride (98-107) mmol/L Carbon Dioxide (22-30) mmol/L Anion Gap (5-15) MEQ/L BUN (9-20) mg/dL Creatinine (0.66-1.25) mg/dL Estimated GFR ML/MIN Glucose (74-106) mg/dL Calcium (8.4-10.2) mg/dL Total Bilirubin (0.2-1.3) mg/dL AST (17-59) U/L ALT (0-50) U/L Alkaline Phosphatase (38-126) U/L Troponin I (0.000-0.034) ng/mL Serum Total Protein (6.3-8.2) g/dL Albumin (3.5-5.0) g/dL Urine Color (Yellow) Urine Appearance (Clear) Urine pH (4.6-8.0) Ur Specific [place] (1.005-1.030) Urine Protein (Negative) Urine Glucose (UA) (Negative) mg/dL Urine Ketones (Negative) Urine Blood (Negative) Urine Nitrite (Negative) Urine Bilirubin (Negative) Urine Urobilinogen (0.2) mg/dL Ur Leukocyte Esterase (Negative) U Hyaline Cast (Auto) (0-2) /LPF Urine Microscopic RBC (0-5) /HPF Urine Microscopic WBC (0-5) /HPF Ur Epithelial Cells (None Seen) /HPF Urine Bacteria (None Seen) /HPF Urine Culture Reflexed (NO) [place] (0.60-1.20) mmol/L Radiology Exams: Radiology Procedures Category Date Time Status CT ANGIOGRAPHY NECK [CT] Routine Exams 12/22/22 22:52 Ordered CTA HEAD W AND/OR WO CONTRAST [CT] Routine Exams 12/22/22 22:52 Ordered ECHO W/2D AND DOPPLER [US] Routine Exams 12/22/22 22:52 Ordered HEAD WITHOUT CONTRAST [CT] Stat Exams 12/22/22 16:18 Completed MRI BRAIN W/O CONTRAST [MRI] Routine Exams 12/22/22 22:52 Ordered Assessment/Plan (1) Dizziness Current Visit: Yes Status: Acute Assessment & Plan: - severe, causing unstable ataxic gait. Denies vertigo, diplopia, and no cerebellar signs on exam. Possibly lithium toxicity, but doses have been unchanged for some time. Neurology consulted in ED, want EEG, MRI brain, stroke evaluation. Patient has h/o plates and screws from TBI surgery in 2008, staff working to see if can get MRI done. - MRI brain if possible - can get CTA head/neck for perfusion - echo - EEG - check lithium level - PT/OT evaluation for gait 12/23: -EEG WNL -MRI/CTA head/neck pending -ECHO pending -lithium level non-toxic Code(s): R42 - DIZZINESS AND GIDDINESS (2) TBI (traumatic brain injury) Current Visit: Yes Status: Acute Assessment & Plan: - with multiple seizure and psychoactive medications at home. - continue home Klonopin 1 TID, Haldol 5 bid, Seroquel 300 TID, trazodone 100 HS, Trintellix 10 daily -Will need neurology referral prior to d/c Code status: Full code Prophylaxis: Lovenox 40 Diet: Regular Code(s): S06.9XAA - UNSPECIFIED INTCRN INJURY WITH LOC STATUS UNKNOWN, INIT (3) Hypokalemia Current Visit: Yes Status: Acute Assessment & Plan: -mild will replenish per protocol Code(s): E87.6 - HYPOKALEMIA
[2022-12-23 05:37] LABS: Creatinine 1 0.98 mg/dL (0.66-1.25)
[2022-12-23 05:38] LABS: ANION GAP 9.4 MEQ/L (5-15); Calcium 9.3 mg/dL (8.4-10.2); EST GLOMERULAR FILTRATION RATE 97.5 ML/MIN; Potassium 3.4 mmol/L (3.5-5.1)
[2022-12-23] MEDS ORDERED: MEDICATION INTERVENTION MC SCH ×2 (07:45)
[2022-12-23] MEDS: Seroquel 100 MG PO SCH ×3 (09:18→21:18)
[2022-12-23] MEDS: Coreg PO SCH ×2 (09:18→21:19)
[2022-12-23] MEDS: clonazePAM PO SCH ×3 (09:18→21:16)
[2022-12-23] MEDS: ENOXAPARIN SODIUM SQ SCH (09:19)
[2022-12-23] MEDS ORDERED: NON-FORMULARY ITEM (Vortioxetine Hydrobromide [Trintellix] 10 MG Tablet) PO SCH (10:00)
[2022-12-23] MEDS ORDERED: NON-FORMULARY ITEM (Quetiapine Fumarate [Quetiapine Fumarate] 300 MG Tablet) PO SCH (10:00)
[2022-12-23] MEDS ORDERED: LITHIUM CARBONATE 300 MG PO SCH (10:00)
[2022-12-23] MEDS ORDERED: NON-FORMULARY ITEM (Clonazepam [Clonazepam] 1 MG Tablet) PO SCH (10:00)
[2022-12-23] MEDS: Klor Con PO SCH ×2 (11:55→15:12)
--- NOTE | 2022-12-23 14:59 | XRAY ---
Indication: Ataxia. Dizziness. History stroke. Sagittal, coronal, and axial MRI brain performed without contrast using T1, T2, FLAIR, diffusion, and ADC sequences. Comparison: None. Age-appropriate global atrophy and minimal periventricular degenerative micro-ischemia. Old right mid to posterior parietal lobe infarct with underlying encephalomalacia and surrounding gliosis. Similar appearing smaller 1 cm focus old infarct left parietal lobe near the vertex. Diffusion images are negative for restricted signal. No acute intracranial hemorrhage, hydrocephalus, or mass effect. Fourth ventricle is midline. 7/8 cranial nerve complex bilaterally symmetric. Normal flow void signal within the major intracerebral circulation. Normal appearing craniocervical junction and sella turcica. Visualized paranasal sinuses are clear. Impression: 1. Old bilateral parietal infarcts as detailed. 2. Atrophy and degenerative micro-ischemia within normal limits for patient's age. 3. No acute intracranial abnormalities or evidence for evolving large vessel territorial stroke.
--- NOTE | 2022-12-23 16:25 | XRAY ---
Indication: Ataxia. Dizziness. History stroke. Conventional contrast enhanced CTA neck performed using 80 cc Isovue 370 contrast. 2-D sagittal and coronal reformatted images obtained. Additional 3-D reformatted images obtained using a separate workstation. Comparison: None Visualized common carotid, carotid bulb, internal carotid, and external carotid arteries are normal in CTA appearance bilaterally. Vertebral arteries are bilaterally patent with the left slightly larger in caliber. Visualized soft tissues demonstrates a few subcentimeter cervical and submandibular lymph nodes bilaterally, none pathologically enlarged. Visualized thyroid gland homogeneous. Supra and infraglottic airway widely patent. Visualized osseous structures intact with prior C6-T1 fusion surgery with intact hardware. Impression: Normal CTA neck with contrast exam. Incidental is C6-T1 fusion.
--- NOTE | 2022-12-23 16:27 | XRAY ---
Indication: Ataxia. Dizziness. History stroke. Conventional contrast enhanced CTA head performed using 80 cc Isovue 370 contrast. 2-D sagittal and coronal reformatted images obtained. Additional 3-D reformatted images obtained using a separate workstation. Comparison: None Visualized distal internal carotid arteries are bilaterally normal in course and caliber without critical stenosis, obstruction, or AV malformation. Normal carotid terminus with normal branching A1 and M1 segments bilaterally. More distal anterior cerebral and middle cerebral arteries are normal in CTA appearance bilaterally. Also normal CTA appearance to the anterior communicating and left/right posterior communicating arteries. Posterior circulation demonstrates normal CTA appearance to the basilar, left/right posterior cerebral, left/right superior cerebellar, and left/right anterior-inferior cerebellar arteries. Venous sinuses/drainage unremarkable. Brain parenchyma negative for abnormal enhancing intra-or extra-axial mass. Impression: Normal CTA head with contrast exam.
[2022-12-23] MEDS: DESYREL 50 MG PO SCH (21:16)
[2022-12-23] MEDS ORDERED: NON-FORMULARY ITEM (Trazodone Hcl [Trazodone Hcl] 100 MG Tablet) PO SCH (22:00)
--- NOTE | 2022-12-24 05:28 | PCM.NOTE ---
Date and Time: 12/24/22525 Subjective Assessment: HPI: 42 y/o M with h/o TBI, presents with dizziness and falls. Notes that has had some difficulty with dizziness for months, but has been most pronounced the last two weeks. Normally walks independently, but since going on a cruise two weeks ago, has had severe dizziness causing him to fall, unable to walk even while trying to use mother's rolling walker. Denies nausea, diplopia, or vision changes. No ear pain or swelling or hearing changes, no sore throat or dyspnea. No changes to his medication dosing. No focal weakness or numbness. MRI, CTA head/neck, EEG with unremarkable findings. 12/23/22: Met with patient bedside. Endorses continued light-headedness which has been present for months but has gotten worse the last few weeks, headaches occasionally, and left-sided weakness/numbness which is chronic since his stroke in 2008. MRI, CTA head/neck, and echo this morning. EEG was normal. Denies fever,cough, sob, cp, abdominal pain, N/V/D, diplopia, or vision changes. Neuro recs pending on these results. Patient states he does not see neurology as OP, we will set him up with one prior to d/c. OBJECTIVE DATA Vital Signs: Vital Signs - 24 hr Temp Pulse Resp BP Pulse Ox 12/24/22 04:00 97.3 F 72 19 92/53 95 12/24/22 00:00 97.5 F 69 20 100/64 96 12/23/22 20:58 97.1 F 80 17 104/64 94 L 12/23/22 16:43 95.9 F 93 H 16 119/67 99 12/23/22 11:43 89 109/75 12/23/22 11:42 75 112/75 12/23/22 07:20 97.5 F 75 16 114/70 94 L Pain Assessment - Last Documented Pain Intensity 0 Pain Scale Used 0-10 Pain Scale Intake and Output: Intake & Output 12/21/22 12/22/22 12/23/22 12/24/22 11:59 11:59 11:59 11:59 Intake Total 720 480 Output Total 150 Balance 570 480 Weight 81 kg Lab Results: Lab Results-Last 24 Hours 12/23/22 12/23/22 12/23/22 Range/Units 05:07 05:07 05:07 Sodium 137 (137-145) mmol/L Potassium 3.4 L (3.5-5.1) mmol/L Chloride 103 (98-107) mmol/L Carbon Dioxide 29 (22-30) mmol/L Anion Gap 9.4 (5-15) MEQ/L BUN 14 (9-20) mg/dL Creatinine 0.98 (0.66-1.25) mg/dL Estimated GFR 97.5 ML/MIN Glucose 115 H (74-106) mg/dL Hemoglobin A1c 4.92 (4.5-6.0) % Calcium 9.3 (8.4-10.2) mg/dL Triglycerides 234 H (30-150) mg/dL Cholesterol 168 (50-200) mg/dL LDL Cholesterol 105 H (30-100) mg/dL HDL Cholesterol 34 L (40-60) mg/dL Heart Disease Risk Ratio 5.0 Neb[place] 0.4 L (0.60-1.20) mmol/L 12/23/22 12/23/22 Range/Units 12:36 16:05 Sodium (137-145) mmol/L Potassium 4.1 D 4.5 (3.5-5.1) mmol/L Chloride (98-107) mmol/L Carbon Dioxide (22-30) mmol/L Anion Gap (5-15) MEQ/L BUN (9-20) mg/dL Creatinine (0.66-1.25) mg/dL Estimated GFR ML/MIN Glucose (74-106) mg/dL Hemoglobin A1c (4.5-6.0) % Calcium (8.4-10.2) mg/dL Triglycerides (30-150) mg/dL Cholesterol (50-200) mg/dL LDL Cholesterol (30-100) mg/dL HDL Cholesterol (40-60) mg/dL Heart Disease Risk Ratio Neb[place] (0.60-1.20) mmol/L Radiology Exams: Radiology Procedures Category Date Time Status CT ANGIOGRAPHY NECK [CT] Routine Exams 12/23/22 22:52 Completed CTA HEAD W AND/OR WO CONTRAST [CT] Routine Exams 12/23/22 22:52 Completed ECHO W/2D AND DOPPLER [US] Routine Exams 12/23/22 22:52 Taken HEAD WITHOUT CONTRAST [CT] Stat Exams 12/22/22 16:18 Completed MRI BRAIN W/O CONTRAST [MRI] Routine Exams 12/23/22 22:52 Completed Assessment/Plan (1) Dizziness Current Visit: Yes Status: Acute Assessment & Plan: (1) Dizziness Current Visit: Yes Status: Acute Assessment & Plan: - severe, causing unstable ataxic gait. Denies vertigo, diplopia, and no cerebellar signs on exam. Possibly lithium toxicity, but doses have been unchanged for some time. Neurology consulted in ED, want EEG, MRI brain, stroke evaluation. Patient has h/o plates and screws from TBI surgery in 2008, staff working to see if can get MRI done. - MRI brain if possible - can get CTA head/neck for perfusion - echo - EEG - check lithium level - PT/OT evaluation for gait 12/23: -EEG WNL -MRI/CTA head/neck pending -ECHO pending -lithium level non-toxic Code(s): R42 - DIZZINESS AND GIDDINESS (2) TBI (traumatic brain injury) Current Visit: Yes Status: Acute Assessment & Plan: - with multiple seizure and psychoactive medications at home. - continue home Klonopin 1 TID, Haldol 5 bid, Seroquel 300 TID, trazodone 100 HS, Trintellix 10 daily -Will need neurology referral prior to d/c Code status: Full code Prophylaxis: Lovenox 40 Diet: Regular Code(s): S06.9XAA - UNSPECIFIED INTCRN INJURY WITH LOC STATUS UNKNOWN, INIT (3) Hypokalemia Current Visit: Yes Status: Acute Assessment & Plan: -mild will replenish per protocol Code(s): R42 - DIZZINESS AND GIDDINESS (2) TBI (traumatic brain injury) Current Visit: Yes Status: Acute Code(s): S06.9XAA - UNSPECIFIED INTCRN INJURY WITH LOC STATUS UNKNOWN, INIT (3) Hypokalemia Current Visit: Yes Status: Acute Code(s): E87.6 - HYPOKALEMIA
[2022-12-24 07:07] VITALS: RESP 16; TEMP 97.1
--- NOTE | 2022-12-24 07:54 | ECHO ---
Transthoracic echocardiographic examination and color Doppler was done on 12/23/2022. INDICATION: Stroke. IMPRESSION: 1) NO REGIONAL WALL MOTION ABNORMALITY. ESTIMATED GLOBAL LEFT VENTRICULAR EJECTION FRACTION OF AROUND 60%. 2) TRACE MITRAL REGURGITATION. 3) MILD AORTIC REGURGITATION. 4) MILD TRICUSPID REGURGITATION. RIGHT VENTRICULAR SYSTOLIC PRESSURE OF 29 MM OF MERCURY. The left ventricle is visualized and demonstrated adequate motion of all the segments. Estimated global left ventricular ejection fraction around 60%. The left ventricular thickness is normal. The mitral valve is seen and this opens adequately. There is trace mitral regurgitation is seen. Left atrium is normal. The aortic valve opens adequately. There is no significant gradient across the aortic valve. There is mild aortic regurgitation. The right side chambers are normal. There is mild tricuspid regurgitation. The right ventricular systolic pressure of 29 mm of Mercury.
[2022-12-24 08:18] LABS: Hematocrit 41.5 % (42-50); Hemoglobin 13.8 g/dL (12.5-18.0); Mean Cell Volume 92.8 fL (78-100); Mean Corpuscular Hemoglobin 30.9 pg (26-32); Mean Corpuscular Hgb Concent. 33.3 g/dL (32-36); Mean Platelet Volume 9.5 fL (7.5-11.0); Platelet Count 195 x10^3/uL (150-450); Red Blood Count 4.47 x10^6/uL (4.1-5.6); Red Cell Distribution Width 12.8 % (11.5-14.0); White Blood Count 5.8 x10^3/uL (4.0-10.5)
[2022-12-24 08:31] LABS: ALBUMIN 3.9 g/dL (3.5-5.0); ANION GAP 10.8 MEQ/L (5-15); BILIRUBIN,TOTAL 0.4 mg/dL (0.2-1.3); Calcium 9.1 mg/dL (8.4-10.2); Creatinine 1 1.06 mg/dL (0.66-1.25); EST GLOMERULAR FILTRATION RATE 88.8 ML/MIN; Potassium 4.3 mmol/L (3.5-5.1); Total Protein 6.6 g/dL (6.3-8.2)
[2022-12-24] MEDS: Coreg PO SCH (09:17)
[2022-12-24] MEDS: Seroquel 100 MG PO SCH (09:17)
[2022-12-24] MEDS: clonazePAM PO SCH (09:17)
[2022-12-24] MEDS: ENOXAPARIN SODIUM SQ SCH (09:18)
--- NOTE | 2022-12-24 11:08 | PCM.DS ---
Discharge Summary Date of Admission: 12/22/22 20:54 Date of Discharge: 12/24/22 Admitting Physician: DELICIA GALVAN MD Primary Care Provider: RODRIGUEZ GRAF Allergies Allergies No Known Drug Allergies Allergy (Verified 12/22/22 16:17) Hospital Summary - Hospital Course Hospital Course: HPI: 42 y/o M with h/o TBI, presents with dizziness and falls. Notes that has had some difficulty with dizziness for months, but has been most pronounced the last two weeks. Normally walks independently, but since going on a cruise two weeks ago, has had severe dizziness causing him to fall, unable to walk even while trying to use mother's rolling walker. Denies nausea, diplopia, or vision changes. No ear pain or swelling or hearing changes, no sore throat or dyspnea. No changes to his medication dosing. No focal weakness or numbness. Patient with history of traumatic brain injury was admitted with complaints of dizziness and falls. He was seen by neurology. CTA of head/neck, MRI negative. Echo is pending final read. Patient worked with PT during hospitalization, we will continue this on an OP basis. Advised patient to follow up with [facility] regarding medications as this may be a potential cause for his dizziness. Additionally, would like the patient to follow up with neurology. Patient cleared for discharge. New Diagnosis: Dizziness New Medications: Resume home meds/ appt with [facility] to review meds Follow Up: [facility]/PCP/neurology/PT/OT OP Latest Assessment & Plan (1) Dizziness Current Visit: Yes Status: Acute Assessment & Plan: - severe, causing unstable ataxic gait. Denies vertigo, diplopia, and no cerebellar signs on exam. Possibly lithium toxicity, but doses have been unchanged for some time. Neurology consulted in ED, want EEG, MRI brain, stroke evaluation. Patient has h/o plates and screws from TBI surgery in 2008, staff working to see if can get MRI done. - MRI brain if possible - can get CTA head/neck for perfusion - echo - EEG - check lithium level - PT/OT evaluation for gait 12/23: -EEG WNL -MRI/CTA head/neck pending -ECHO pending -lithium level non-toxic Code(s): R42 - DIZZINESS AND GIDDINESS (2) TBI (traumatic brain injury) Current Visit: Yes Status: Acute Assessment & Plan: - with multiple seizure and psychoactive medications at home. - continue home Klonopin 1 TID, Haldol 5 bid, Seroquel 300 TID, trazodone 100 HS, Trintellix 10 daily -Will need neurology referral prior to d/c I spent 35 minutes [id number] with the patient on the day of discharge performing discharge exam, discussing hospital stay and discharge instructions with patient and caregivers, preparation of discharge records, prescriptions & referral forms and addressing any questions/concerns the patient had as documented above. - Vitals & Intake/Output Vital Signs: Vital Signs Temperature 97.1 F 12/24/22 07:07 Pulse Rate 68 12/24/22 07:07 Respiratory Rate 16 12/24/22 07:07 Blood Pressure 92/59 12/24/22 07:07 O2 Sat by Pulse Oximetry 96 12/24/22 07:07 Intake & Output: Intake & Output 12/21/22 12/22/22 12/23/22 12/24/22 11:59 11:59 11:59 11:59 Intake Total 720 840 Output Total 150 Balance 570 840 Weight 81 kg - Lab Result Diagrams: 12/24/22 08:10 12/24/22 08:10 Lab Results-Last 24 Hrs: Lab Results-Last 24 Hours 12/23/22 12/23/22 12/24/22 Range/Units 12:36 16:05 08:10 WBC 5.8 (4.0-10.5) x10^3/uL RBC 4.47 (4.1-5.6) x10^6/uL Hgb 13.8 (12.5-18.0) g/dL Hct 41.5 L (42-50) % MCV 92.8 (78-100) fL MCH 30.9 (26-32) pg MCHC 33.3 (32-36) g/dL RDW 12.8 (11.5-14.0) % Plt Count 195 (150-450) x10^3/uL MPV 9.5 (7.5-11.0) fL Sodium (137-145) mmol/L Potassium 4.1 D 4.5 (3.5-5.1) mmol/L Chloride (98-107) mmol/L Carbon Dioxide (22-30) mmol/L Anion Gap (5-15) MEQ/L BUN (9-20) mg/dL Creatinine (0.66-1.25) mg/dL Estimated GFR ML/MIN Glucose (74-106) mg/dL Calcium (8.4-10.2) mg/dL Magnesium (1.6-2.3) mg/dL Total Bilirubin (0.2-1.3) mg/dL AST (17-59) U/L ALT (0-50) U/L Alkaline Phosphatase (38-126) U/L Serum Total Protein (6.3-8.2) g/dL Albumin (3.5-5.0) g/dL 12/24/22 Range/Units 08:10 WBC (4.0-10.5) x10^3/uL RBC (4.1-5.6) x10^6/uL Hgb (12.5-18.0) g/dL Hct (42-50) % MCV (78-100) fL MCH (26-32) pg MCHC (32-36) g/dL RDW (11.5-14.0) % Plt Count (150-450) x10^3/uL MPV (7.5-11.0) fL Sodium 139 (137-145) mmol/L Potassium 4.3 (3.5-5.1) mmol/L Chloride 106 (98-107) mmol/L Carbon Dioxide 27 (22-30) mmol/L Anion Gap 10.8 (5-15) MEQ/L BUN 11 (9-20) mg/dL Creatinine 1.06 (0.66-1.25) mg/dL Estimated GFR 88.8 ML/MIN Glucose 106 (74-106) mg/dL Calcium 9.1 (8.4-10.2) mg/dL Magnesium 2.0 (1.6-2.3) mg/dL Total Bilirubin 0.40 (0.2-1.3) mg/dL AST 18 (17-59) U/L ALT 15 (0-50) U/L Alkaline Phosphatase 61 (38-126) U/L Serum Total Protein 6.6 (6.3-8.2) g/dL Albumin 3.9 (3.5-5.0) g/dL - Radiology Exams Ordered Rad Exams-Entire Visit: Radiology Procedures Category Date Time Status CT ANGIOGRAPHY NECK [CT] Routine Exams 12/23/22 22:52 Completed CTA HEAD W AND/OR WO CONTRAST [CT] Routine Exams 12/23/22 22:52 Completed ECHO W/2D AND DOPPLER [US] Routine Exams 12/23/22 22:52 Draft HEAD WITHOUT CONTRAST [CT] Stat Exams 12/22/22 16:18 Completed MRI BRAIN W/O CONTRAST [MRI] Routine Exams 12/23/22 22:52 Completed - Procedures and Test Procedures and Tests throughout Hospitalization: Therapy Orders & Screens 12/22/22 22:49 PT Eval & Treat (MD Order) ONCE Reason for Eval:: eval & treat Diagnosis: ataxia OT Eval and Treat (MD Order) ONCE Comment: Physician Instructions: Reason For Exam: Diagnosis: ataxia 12/22/22 22:54 EEG 41-60 Minutes (Normal) ONCE Comment: Reason For Exam: Diagnosis: ataxia Discharge Exam General Appearance: no apparent distress Neurologic Exam: alert, oriented x 3, cooperative Eye Exam: PERRL Ears, Nose, Throat Exam: normal ENT inspection Neck Exam: normal inspection Respiratory Exam: normal breath sounds, lungs clear Cardiovascular Exam: regular rate/rhythm, normal heart sounds Gastrointestinal/Abdomen Exam: soft, normal bowel sounds Male Genitalia Exam: deferred Rectal Exam: deferred Back Exam: normal inspection Extremity Exam: normal inspection Final Diagnosis/Problem List - Final Discharge Diagnosis/Problem (1) Dizziness Current Visit: Yes Status: Acute Code(s): R42 - DIZZINESS AND GIDDINESS (2) TBI (traumatic brain injury) Current Visit: Yes Status: Acute Code(s): S06.9XAA - UNSPECIFIED INTCRN INJURY WITH LOC STATUS UNKNOWN, INIT (3) Hypokalemia Current Visit: Yes Status: Acute Code(s): E87.6 - HYPOKALEMIA - Discharge Disposition: Home, Self-Care Condition: Stable Prescriptions: Continue Vortioxetine Hydrobromide [Trintellix] 1 tab PO DAILY Trazodone HCl 1 tab PO HS Carvedilol [Coreg ] 1 tab PO BID clonazePAM [Clonazepam] 1 tab PO TID [place] Carbonate 1 tab PO BID haloperidoL [Haloperidol] 1 tab PO BID Quetiapine Fumarate 1 tab PO TID Outpatient Orders: Physical Therapy Eval & Treat Facility: [facility], Location: PHYSICAL THERAPY Additional Instructions: 's office will call patient with an appt date and time. YOU HAVE AN APT WITH PHYSICAL THERAPY THURSDAY 12/28@2PM, TO CHANGE OR CANCEL APT- CALL [phone] est 2292 Follow up with: ABDOULAYE LIAO [CONSULTING PHYSICIAN] - RODRIGUEZ GRAF MD [Primary Care Provider] - 12/31/22 2:30 pm [facility] [Outside] (Please see Lanny Valdivia in 3-5 day for medication revi ew)
[2022-12-24 11:16] VITALS: BP 90/54; PULSE 78; O2SAT 92
== END 2022-12-24 12:57 | disposition home or self-care (01) ==
LOC: ED 16:05 → MED SURG 20:54
PROVIDERS: ADMIT Internal Medicine; ATTEND Internal Medicine
DX: R42 Dizziness and giddiness (principal); R29.6 Repeated falls; E87.6 Hypokalemia; E78.5 Hyperlipidemia, unspecified; I10 Essential (primary) hypertension; Z87.820 Personal history of traumatic brain injury; Z79.899 Other long term (current) drug therapy; Z20.828 Contact with and (suspected) exposure to other viral communicable diseases
CPT/HCPCS: 36410; 36415; 70450; 70496; 70498; 70551; 76942; 80048; 80053; 80061; 80178; 81001; 83036; 83721; 83735; 84132; 84484; 85025; 85027; 93005; 93041; 93268; 93306; 94760; 95812; 99284; J1650; Q3014; A9270-GY; G0378

== ENCOUNTER 2023-02-02 20:29 | Emergency (ER) | payer OTHER ==
[2023-02-02 21:07] VITALS: TEMP 98.1; O2SAT 98
[2023-02-02] MEDS ORDERED: Sodium Chloride 0.9% 1000 ML 1,000 ML IV STA (21:22)
[2023-02-02 22:21] LABS: INFLUENZA A NEGATIVE (NEGATIVE); INFLUENZA B NEGATIVE (NEGATIVE); RESPIRATORY SYNCTIAL VIRUS NEGATIVE (NEGATIVE); SARS-CoV-2 Xpert Express NEGATIVE (NEGATIVE)
[2023-02-02] MEDS ORDERED: Sodium Chloride 0.9% 1000 ML 1,000 ML ONE (22:25)
[2023-02-02 22:29] LABS: Absolute Neutrophil Ct (ANC) 5.49 x10^3/uL (1.4-6.9); BASOPHIL % 0.4 % (0.0-0.4); Basophil (Absolute #) 0.03 x10^3/uL (0-0.4); Eosinophil (Absolute #) 0.17 x10^3/uL (0-0.5); Hematocrit 46.1 % (42-50); Hemoglobin 15.7 g/dL (12.5-18.0); IMMATURE GRAN # 0.01 x10^3u/L (0.00-0.03); IMMATURE GRAN % 0.1 % (0.00-0.4); Lymphocyte (Absolute #) 1.94 x10^3/uL (1.0-4.6); Lymphocytes % 23.2 % (24.0-44.0); Mean Cell Volume 92.6 fL (78-100); Mean Corpuscular Hemoglobin 31.5 pg (26-32); Mean Corpuscular Hgb Concent. 34.1 g/dL (32-36); Mean Platelet Volume 9.4 fL (7.5-11.0); Monocyte (Absolute #) 0.71 x10^3/uL (0.0-1.3); Monocytes % 8.5 % (0.0-12.0); Neutrophil % 65.8 % (36.0-66.0); Platelet Count 244 x10^3/uL (150-450); Red Blood Count 4.98 x10^6/uL (4.1-5.6); Red Cell Distribution Width 12.6 % (11.5-14.0); White Blood Count 8.4 x10^3/uL (4.0-10.5)
--- NOTE | 2023-02-02 22:42 | XRAY ---
CLINICAL HISTORY:pain COMPARISON:None. TECHNIQUE:X-ray chest, 1 view, AP portable view. FINDINGS: Rotation of the patient is noted. The left CP angle is blunt, might be due to pleural effusion. The right CP angle is clear. A small 11 mm well-defined soft tissue nodule seen in mid-zone is likely an old granuloma and seems benign in etiology. No consolidation seen on either side. Both mediastinal and hilar contours are intact. Both cardiophrenic recesses are clear. Cardiac size appears normal. Retrocardiac space is clear. No significant pathology was identified in the visualized skeleton. An incidental note is made of a metallic density in neck region...histroy evaluation for any interventional procedure is recommended. IMPRESSION: 1. Blunt left CP angle, might be due to pleural effusion. US correlation is advised. 2. Small 11 mm well-defined soft tissue nodule in the mid-zone of the left lung might be an old granuloma with benign etiology. CT might be further helpful with follow-up. Electronically Signed by: Jeannette Cloud MD. (02/02/2023 22:39:30 EST)
[2023-02-02 22:50] LABS: ALBUMIN 4.7 g/dL (3.5-5.0); ANION GAP 11.7 MEQ/L (5-15); BILIRUBIN,TOTAL 0.8 mg/dL (0.2-1.3); Calcium 11.1 mg/dL (8.4-10.2); Creatinine 1 1.12 mg/dL (0.66-1.25); EST GLOMERULAR FILTRATION RATE 83.1 ML/MIN; Potassium 4.1 mmol/L (3.5-5.1); Total Protein 7.9 g/dL (6.3-8.2)
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
[2023-02-02 23:17] VITALS: BP 126/76; PULSE 71; RESP 18
== END 2023-02-02 23:31 | disposition home or self-care (01) ==
LOC: ED 20:29
DX: R91.1 Solitary pulmonary nodule (principal); R53.1 Weakness; R93.89 Abnormal findings on diagnostic imaging of other specified body structures; E78.5 Hyperlipidemia, unspecified; I10 Essential (primary) hypertension; Z79.899 Other long term (current) drug therapy; Z28.310 Unvaccinated for COVID-19; Z87.820 Personal history of traumatic brain injury
CPT/HCPCS: 0241U; 36000; 36415; 71045; 80053; 84484; 85025; 93041; 94760; 99284

== ENCOUNTER 2023-10-21 14:38 | Emergency (ER) | payer OTHER ==
[2023-10-21 14:57] VITALS: RESP 18; TEMP 98
[2023-10-21] MEDS ORDERED: Sodium Chloride 0.9% 1000 ML 1,000 ML ONE (15:47)
[2023-10-21 16:01] LABS: Absolute Neutrophil Ct (ANC) 4.28 x10^3/uL (1.78-5.38); BASOPHIL % 0.5 % (0.2-1.2); Basophil (Absolute #) 0.03 x10^3/uL (0.01-0.08); Eosinophil % 3.4 % (0.8-7.0); Eosinophil (Absolute #) 0.22 x10^3/uL (0.04-0.54); Hemoglobin 14.6 g/dL (13.7-17.5); IMMATURE GRAN # 0.01 x10^3u/L (0.001-0.031); IMMATURE GRAN % 0.2 % (0.001-0.429); Lymphocyte (Absolute #) 1.43 x10^3/uL (1.32-3.57); Lymphocytes % 22.1 % (21.8-53.1); Mean Cell Volume 91.3 fL (79.0-92.2); Mean Platelet Volume 9.8 fL (9.4-12.4); Monocyte (Absolute #) 0.51 x10^3/uL (0.30-0.82); Monocytes % 7.9 % (5.3-12.2); Neutrophil % 65.9 % (34.0-67.9); Platelet Count 246 x10^3/uL (163-337); Red Blood Count 4.71 x10^6/uL (4.63-6.08); White Blood Count 6.5 x10^3/uL (4.23-9.07)
[2023-10-21 16:06] LABS: Appearance Clear (Clear); Bacteria None Seen /HPF (None Seen); Bilirubin Negative (Negative); Blood Negative (Negative); Epithelial Cells None Seen /HPF (None Seen); Glucose, Urine Negative (Negative); Hyaline Casts NONE SEEN /LPF (0-2); Ketones Negative (Negative); Leukocyte Esterase Negative (Negative); Nitrite Negative (Negative); Ph 7.5 (4.6-8.0); Protein,Urine Dip Negative (Negative); RBC 0-2 /HPF (0-5); Urobilinogen 0.2 mg/dL (0.2); WBC 0-2 /HPF (0-5)
[2023-10-21 16:08] LABS: ADD URINE CULTURE? NO (NO)
[2023-10-21] MEDS: Sodium Chloride 0.9% 1000 ML 1,000 ML IV SCH (16:13)
[2023-10-21 16:16] LABS: ALBUMIN 4.5 g/dL (3.5-5.0); ANION GAP 12.9 MEQ/L (5-15); BILIRUBIN,TOTAL 0.4 mg/dL (0.2-1.3); Creatinine 1 1.19 mg/dL (0.66-1.25); EST GLOMERULAR FILTRATION RATE 76.8 ML/MIN; Potassium 3.7 mmol/L (3.5-5.1); Total Protein 7.8 g/dL (6.3-8.2)
--- NOTE | 2023-10-21 16:54 | XRAY ---
Indication: Status post fall. Slurred speech. Multiple contiguous images obtained through the head without contrast. Comparison: December 22, 2022 Stable old right mid to posterior parietal lobe infarct near vertex. No acute intracranial hemorrhage, hydrocephalus, or mass effect. Fourth ventricle is midline without hydrocephalus. Bony calvarium intact. Visualized paranasal sinuses and mastoid air cells are clear. Impression: Stable old right parietal infarct. No new/acute intracranial abnormalities. Normal CTA neck and CTA head December 23, 2022.
--- NOTE | 2023-10-21 16:58 | XRAY ---
Indication: Status post fall. Slurred speech. Multiple contiguous axial images obtained through the cervical spine. Sagittal and coronal reformatted images obtained. Comparison: CTA neck December 23, 2022. Axial images negative for acute fracture, suspicious bony lesions, or spinal canal stenosis. Stable mild C3-C6 anterior endplate spurring and C6-T1 fusion hardware. Sagittal and coronal reformatted images again demonstrate normal alignment. Disc spaces maintained. No acute compression fracture or jumped facet. Normal appearing craniocervical junction. Visualized noncontrasted soft tissues including lung apices unremarkable. Impression: 1. Again negative acute fracture/subluxation. 2. Stable C3-C6 anterior endplate spurring and C6-T1 fusion.
--- NOTE | 2023-10-21 17:00 | XRAY ---
Indication: Pain following fall. Comparison: None 2 view left ribs demonstrates old posterior 6 rib fracture, minimal lumbar degenerative endplate spurring, and C6-T1 junction fusion hardware. PA/lateral chest demonstrates normal heart and lungs with a few tiny left lung calcified granulomas. Impression: Nonacute left ribs with chronic features. Nonacute one view chest.
[2023-10-21 17:08] VITALS: O2SAT 99
[2023-10-21 18:23] VITALS: BP 139/95; PULSE 65
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
== END 2023-10-21 18:50 | disposition left against medical advice (07) ==
LOC: ED 14:38
DX: R47.81 Slurred speech (principal); R51.9 Headache, unspecified; S20.211A Contusion of right front wall of thorax, initial encounter; W19.XXXA Unspecified fall, initial encounter; Z91.81 History of falling; E78.5 Hyperlipidemia, unspecified; I10 Essential (primary) hypertension; Z79.899 Other long term (current) drug therapy
CPT/HCPCS: 36000; 36415; 70450; 71101; 72125; 80053; 81001; 83605; 84484; 85025; 93005; 99284

== ENCOUNTER 2024-01-09 11:22 | Emergency (ER) | payer OTHER ==
[2024-01-09 11:42] VITALS: TEMP 97.9
[2024-01-09] MEDS ORDERED: Sodium Chloride 0.9% 1000 ML 1,000 ML ONE (11:47)
[2024-01-09] MEDS: Sodium Chloride 0.9% 1000 ML 1,000 ML IV STA (11:48)
[2024-01-09 12:07] LABS: Absolute Neutrophil Ct (ANC) 2.33 x10^3/uL (1.78-5.38); BASOPHIL % 0.7 % (0.2-1.2); Basophil (Absolute #) 0.03 x10^3/uL (0.01-0.08); Eosinophil % 5.4 % (0.8-7.0); Eosinophil (Absolute #) 0.23 x10^3/uL (0.04-0.54); Hemoglobin 14.2 g/dL (13.7-17.5); IMMATURE GRAN # 0.01 x10^3u/L (0.001-0.031); IMMATURE GRAN % 0.2 % (0.001-0.429); Lymphocyte (Absolute #) 1.17 x10^3/uL (1.32-3.57); Lymphocytes % 27.7 % (21.8-53.1); Mean Cell Volume 91.7 fL (79.0-92.2); Mean Corpuscular Hgb Concent. 33.8 g/dL (32.3-36.5); Mean Platelet Volume 9.5 fL (9.4-12.4); Monocyte (Absolute #) 0.46 x10^3/uL (0.30-0.82); Monocytes % 10.9 % (5.3-12.2); Neutrophil % 55.1 % (34.0-67.9); Platelet Count 194 x10^3/uL (163-337); Red Blood Count 4.58 x10^6/uL (4.63-6.08); Red Cell Distribution Width 12.7 % (11.6-14.4); White Blood Count 4.2 x10^3/uL (4.23-9.07)
[2024-01-09 12:21] LABS: ALBUMIN 4.5 g/dL (3.5-5.0); ANION GAP 13.4 MEQ/L (5-15); BILIRUBIN,TOTAL 0.4 mg/dL (0.2-1.3); Calcium 9.8 mg/dL (8.4-10.2); Creatinine 1 1.19 mg/dL (0.66-1.25); EST GLOMERULAR FILTRATION RATE 76.8 ML/MIN; Total Protein 7.7 g/dL (6.3-8.2)
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
[2024-01-09 13:15] VITALS: PULSE 67; RESP 16
[2024-01-09 13:20] VITALS: O2SAT 99
[2024-01-09 13:41] VITALS: BP 120/77
== END 2024-01-09 13:51 | disposition home or self-care (01) ==
LOC: ED 11:22
DX: R53.1 Weakness (principal); Z79.899 Other long term (current) drug therapy; R53.83 Other fatigue; R41.0 Disorientation, unspecified; T48.3X5A Adverse effect of antitussives, initial encounter
CPT/HCPCS: 36415; 80053; 80178; 85025; 87040; 93005; 96360; 99284